=== PATIENT | male | born 1980 | race Caucasian/White ===

== ENCOUNTER 2016-10-08 18:30 | Emergency (ER) | payer OTHER ==
[~2016-10-08] VITALS: Ht 193 cm; Wt 90.4 kg
[~2016-10-08 18:30] MED LIST: ATR25 PO; DIVA500T5 PO; FLUT27.5 NAE
[2016-10-08 18:37] VITALS: TEMP 36.9; Ht 193 cm; Wt 90.4 kg
[2016-10-08] MEDS ORDERED: KETOROLAC TROMETHAMINE 30 MG/ML VIAL IV STA (18:54)
[2016-10-08] MEDS ORDERED: ONDANSETRON INJ 2 MG/ML 2 ML VIAL IV STA (18:54)
[2016-10-08] MEDS ORDERED: MoRPHine SULFATE 10 MG/ML CARP/VIAL IV STA ×2 (18:54→20:52)
[2016-10-08] MEDS ORDERED: SODIUM CHLORIDE 0.9% 1000ML 2,000 ML IV STA (18:54)
[2016-10-08 19:13] LABS: BASO % 0.8 %; BASO ABS # 0.04 K/uL (0-0.2); COMPLETE YES; EOS % 8.1 %; HEMATOCRIT 44.3 % (42-52); IG% 0.2 %; LYMPH % 28.5 %; LYMPH ABS # 1.45 K/uL (1.2-3.4); MEAN CORPUSCULAR HEMOGLOBIN 32.9 pg (25-34); MEAN CORPUSCULAR HGB CONC 36.1 g/dl (32-36); MEAN PLATELET VOLUME 10.5 fL (7.4-10.4); MONO % 10.4 %; PLATELET COUNT 186 K/uL (130-400); RED BLOOD COUNT 4.87 M/uL (4.7-6.1); WHITE BLOOD COUNT 5.08 K/uL (4.8-10.8)
[2016-10-08 19:23] LABS: URINE APPEARANCE TURBID (CLEAR); URINE COLOR ORANGE; URINE EPITHELIAL CELL AUTO 20-30 /lpf (0-5); URINE NITRITE NEG (NEG); URINE SPECIFIC GRAVITY 1.025 (1.000-1.030); UROBILINOGEN NEG (NEG)
[2016-10-08 19:28] LABS: MANUAL MICROSCOPIC REQUIRED? NO; REVIEW REQ? YES
[2016-10-08 19:29] LABS: URINE BILIRUBIN NEG (NEG)
[2016-10-08 19:33] LABS: BUN/CREATININE RATIO 11.4 (10-20); CALCIUM 9.8 mg/dl (8.5-10.1); CREATININE 0.88 mg/dl (0.60-1.40); POTASSIUM 3.6 mmol/L (3.5-5.1)
[2016-10-08 19:36] LABS: ALB/GLOB RATIO 1.3 (0.9-2)
[2016-10-08] MEDS ORDERED: MoRPHine SULFATE 4 MG/ML 1 ML CARP\\VIAL ONE ×2 (19:46→21:02)
--- NOTE | 2016-10-08 20:30 | DIAGNOSTIC IMAGING REPORT ---
CT SCAN OF THE ABDOMEN AND PELVIS WITHOUT IV CONTRAST CLINICAL HISTORY: Left flank pain and hematuria. COMPARISON STUDY: Abdominal CT dated 10/10/2013. TECHNIQUE: CT scan of the abdomen and pelvis is performed from the lung bases to the proximal femora. Images are reviewed in the axial, sagittal, and coronal planes. IV contrast was not administered for this examination. Automated dose control exposure was utilized. CT DOSE: 1074.49 mGycm FINDINGS: Lung bases: The heart is normal in size and without pericardial effusion. The lung bases are clear noting dependent atelectasis. Liver: The unenhanced liver is normal in size, contour, and attenuation. There is no intrahepatic biliary ductal dilatation. Gallbladder: Unremarkable. Spleen: Normal in size and attenuation. Pancreas: Unremarkable. Adrenal glands: Unremarkable. Kidneys: The unenhanced kidneys are normal in size and without hydronephrosis. There is a 6 mm calculus versus 2 adjacent calculi identified within the left renal pelvis, best seen on axial image #138. An additional punctate nonobstructing calculus is seen in the lower pole of the left kidney. No right renal calculi are identified. There is no evidence of contour deforming renal mass lesion. Abdominal vasculature: The abdominal aorta is normal in course and caliber. Bowel: The small bowel and colon are normal in course and caliber. There is mild colonic diverticulosis without CT evidence of acute diverticulitis. The appendix is surgically absent. Peritoneum: There is no intraperitoneal free air or abdominal ascites. There is a small fat-containing umbilical hernia. Lymphadenopathy: None. Pelvic viscera: The bladder, prostate, and seminal vesicles are normal as imaged. Skeletal structures: No lytic or blastic lesions are seen. IMPRESSION: 1. There is a 6 cm calculus versus 2 adjacent calculi identified in the left renal pelvis. There is no left-sided hydronephrosis, and this may be intermittently obstructing. Follow-up with urology is recommended. 2. An additional punctate nonobstructing calculus is seen in the left lower pole. No stones are identified in the right kidney. 3. Mild colonic diverticulosis without CT evidence of acute diverticulitis. Electronically signed by: Ponce Shin M.D. 10/08/2016 8:28 PM Dictated Date/Time: 10/08/2016 8:21 PM
--- NOTE | 2016-10-08 21:27 | DIAGNOSTIC IMAGING REPORT ---
KUB CLINICAL HISTORY: Left renal calculi. FINDINGS: 2 AP supine abdominal radiographs are correlated with abdominal CT performed the same day 10/08/2016. There is a nonobstructed abdominal bowel gas pattern. Suture material is noted in the right lower quadrant. There is moderate colonic fecal retention. This largely obscures the renal shadows. The left renal calculi seen by CT are not apparent by x-ray. The bony structures appear intact. The lung bases are clear as imaged. IMPRESSION: 1. Nonobstructed abdominal bowel gas pattern. 2. The left renal calculi seen by CT were not apparent by x-ray. Electronically signed by: Ponce Shin M.D. 10/08/2016 9:25 PM Dictated Date/Time: 10/08/2016 9:23 PM
[2016-10-08] MEDS ORDERED: OXYC1TAB3 PO (21:33)
[2016-10-08] MEDS ORDERED: ONDA4TAB10 SL (21:33)
--- NOTE | 2016-10-08 21:35 | EMERGENCY ROOM VISIT NOTE ---
ED Visit Note First contact with patient: 18:38 CHIEF COMPLAINT: Left-sided abdominal pain since last evening HISTORY OF PRESENT ILLNESS: Patient is a 36-year-old white male who presents emergency department for evaluation of left-sided abdominal pain. He states that he developed some mild discomfort last evening but it has progressively worsened throughout the day today. He describes it as constant, sharp and stabbing. It is located in the left mid abdomen and does not radiate. He reports associated nausea and vomited last evening. He denies any dysuria, frequency, urgency or hematuria, but just provided a urine sample and noted that it looked dark in the specimen cup. He has been having normal bowel movements, last was about 2 hours prior to arrival. It was formed and brown without blood or melena. He denies any pain with bowel movements. He denies any fever or chills. He is status post appendectomy. He presently rates his pain a 9/10. He tried taking Aleve without relief of his symptoms. REVIEW OF SYSTEMS: Review of systems as per HPI. All other systems reviewed were negative. 10 systems reviewed. PMH: Electronic medical records are reviewed and summarized as above/below. See Problem List. SOCIAL HISTORY: Patient lives at home. Smokes half a pack of cigarettes daily , denies alcohol use. He is unemployed. PHYSICAL EXAM: Vital Signs: Reviewed Nurse's notes. CONSTITUTIONAL: Patient is uncomfortable 36-year-old white male who is awake and alert and in moderate distress due to his stated complaint. EYES: Pupils equal, round, reactive to light and accommodation. EOMs intact without nystagmus. Sclera are anicteric. ENT: Tympanic membranes intact, with normal landmarks. External canals are clear. Oral and nasopharynx are clear. Mucous membranes are moist, no lesions , tongue and gums appear normal. NECK: No bruits auscultated. Supple without lymphadenopathy. No thyromegaly. No meningeal signs. Full active range of motion without discomfort. CARDIOVASCULAR: Regular rate and rhythm, with normal S1 and S2, no murmur or gallop or rub is heard. No carotid bruits auscultated. No JVD. Peripheral pulses easily palpable. RESPIRATORY: Breath sounds equal and clear to auscultation without wheezes, rales, or rhonchi heard. Full and equal chest expansion without accessory muscle use or retractions. ABDOMEN: Bowel sounds are present. Abdomen is soft, nondistended, tender to palpation in the left upper and lower quadrants, without guarding, rebound or rigidity. Well-healed surgical scar noted in the right lower quadrant. INTEGUMENTARY: No lesions or rash, normal skin turgor. LYMPH: No lymphadenopathy. EMERGENCY DEPARTMENT COURSE: Patient was seen and assessed as above. His old records were reviewed. IV access was obtained and he was hydrated with normal saline solution. He was medicated with morphine, Toradol and Zofran IV for pain. CBC with differential, CMP, lipase and urinalysis were performed. CT scan of the abdomen and pelvis without contrast was ordered. Laboratory studies noted a normal white count and H&H. Electrolytes, renal function and liver functions are normal. Lipase is not elevated. Urine dip noted 3+ occult blood, greater than 30 RBCs and calcium oxalate crystals. CT scan of the abdomen and pelvis noted a 6 mm calculus versus 2 adjacent calculi in the left renal pelvis. Possibility of intermittent obstruction was raised although there was no evidence for hydronephrosis at the time of CT. Mild diverticulosis without evidence for diverticulitis was noted. The patient was reassessed. He did request additional medication for discomfort and was given morphine 8 mg IV. All laboratory and diagnostic imaging studies were reviewed with him. He has evidence for nephrolithiasis, which may be intermittently causing obstruction in the left renal pelvis. His calcium oxalate crystals and blood in his urine, but no other indicators for infection. He is comfortable with IV and took after receiving IV fluids and analgesia. Conservative care measures were discussed. He was advised to follow -up with his PCP and urology this week for further care and evaluation. The patient rated his pain a 4/10 at discharge. Differential diagnoses entertained included UTI, cystitis, urethritis, pyelonephritis, renal colic, diverticulitis, bowel obstruction, perforation, among others. CT SCAN OF THE ABDOMEN AND PELVIS WITHOUT IV CONTRAST CLINICAL HISTORY: Left flank pain and hematuria. COMPARISON STUDY: Abdominal CT dated 10/10/2013. TECHNIQUE: CT scan of the abdomen and pelvis is performed from the lung bases to the proximal femora. Images are reviewed in the axial, sagittal, and coronal planes. IV contrast was not administered for this examination. Automated dose control exposure was utilized. CT DOSE: 1074.49 mGycm FINDINGS: Lung bases: The heart is normal in size and without pericardial effusion. The lung bases are clear noting dependent atelectasis. Liver: The unenhanced liver is normal in size, contour, and attenuation. There is no intrahepatic biliary ductal dilatation. Gallbladder: Unremarkable. Spleen: Normal in size and attenuation. Pancreas: Unremarkable. Adrenal glands: Unremarkable. Kidneys: The unenhanced kidneys are normal in size and without hydronephrosis. There is a 6 mm calculus versus 2 adjacent calculi identified within the left renal pelvis, best seen on axial image #138. An additional punctate nonobstructing calculus is seen in the lower pole of the left kidney. No right renal calculi are identified. There is no evidence of contour deforming renal mass lesion. Abdominal vasculature: The abdominal aorta is normal in course and caliber. Bowel: The small bowel and colon are normal in course and caliber. There is mild colonic diverticulosis without CT evidence of acute diverticulitis. The appendix is surgically absent. Peritoneum: There is no intraperitoneal free air or abdominal ascites. There is a small fat-containing umbilical hernia. Lymphadenopathy: None. Pelvic viscera: The bladder, prostate, and seminal vesicles are normal as imaged. Skeletal structures: No lytic or blastic lesions are seen. IMPRESSION: 1. There is a 6 cm calculus versus 2 adjacent calculi identified in the left renal pelvis. There is no left-sided hydronephrosis, and this may be intermittently obstructing. Follow-up with urology is recommended. 2. An additional punctate nonobstructing calculus is seen in the left lower pole. No stones are identified in the right kidney. 3. Mild colonic diverticulosis without CT evidence of acute diverticulitis. ] KUB CLINICAL HISTORY: Left renal calculi. FINDINGS: 2 AP supine abdominal radiographs are correlated with abdominal CT performed the same day 10/08/2016. There is a nonobstructed abdominal bowel gas pattern. Suture material is noted in the right lower quadrant. There is moderate colonic fecal retention. This largely obscures the renal shadows. The left renal calculi seen by CT are not apparent by x-ray. The bony structures appear intact. The lung bases are clear as imaged. IMPRESSION: 1. Nonobstructed abdominal bowel gas pattern. 2. The left renal calculi seen by CT were not apparent by x-ray. Problem List Medical Problems: (1) Abdominal pain Status: Resolved (2) Abscess of leg, right Status: Resolved (3) Abscess, earlobe Status: Resolved (4) Alcohol abuse Status: Resolved (5) Alcohol intoxication Status: Resolved (6) Ankle pain Status: Resolved (7) Asthma Status: Chronic (8) Asthma exacerbation Status: Resolved (9) Bilateral otitis externa Status: Resolved (10) Blood Clots Status: Resolved (11) Bronchitis Status: Resolved (12) Cellulitis of right ear Status: Resolved (13) Cellulitis of right earlobe Status: Resolved (14) Cervical strain Status: Resolved (15) Chronic hip pain Status: Chronic (16) Contusion of left hand including fingers Status: Resolved (17) Contusion of multiple sites Status: Resolved (18) Dehydration Status: Resolved (19) Depression Status: Resolved (20) Depression Status: Chronic (21) Encounter for removal of abscess packing Status: Resolved (22) Fall due to slipping on ice or snow Status: Resolved (23) Headache Status: Resolved (24) Headache Status: Resolved (25) Headache Status: Resolved (26) Hematemesis Status: Resolved (27) Hx-Venous Thrombosis&Embolism Status: Chronic (28) Infected sebaceous cyst Status: Resolved (29) Moderate recurrent major depression Status: Resolved (30) Nausea and vomiting Status: Resolved (31) Numbness on right side Status: Resolved (32) Pharyngitis Status: Resolved (33) Pharyngitis Status: Resolved (34) Pneumonia Status: Resolved (35) Pneumonitis Status: Resolved (36) Right calf pain Status: Resolved (37) Right knee pain Status: Resolved (38) Right upper quadrant abdominal pain Status: Resolved (39) Single major depressive episode Status: Resolved (40) Stomach Problems Status: Chronic (41) Strain of thoracic spine Status: Resolved (42) Suicidal ideation Status: Resolved (43) URI (upper respiratory infection) Status: Resolved (44) URI, acute Status: Resolved (45) Vomiting Status: Resolved (46) Vomiting and diarrhea Status: Resolved Surgical Problems: (1) Appendectomy Status: Resolved (2) Knee Surgery Status: Resolved Current/Historical Medications Scheduled Trazodone Hcl (Desyrel), 100 MG PO HS Scheduled PRN Hydroxyzine HCl (Hydroxyzine HCl), 25 MG PO for Itching Ondasetron Odt (Zofran Odt), 4 MG SL Q6H PRN for Nausea or Vomiting Oxycodone Immediate Rel Tab (Roxicodone Ir), 1-2 TAB PO Q4H PRN for Severe Pain Allergies Coded Allergies: Prednisone (Unverified Allergy, Unknown, hives, 10/08/16) BEE STING (Verified Adverse Reaction, Mild, UNKNOWN, 10/08/16) Vital Signs Date Time Temp Pulse Resp B/P Pulse Ox O2 Delivery O2 Flow Rate FiO2 10/08/16 21:50 57 20 153/102 98 10/08/16 20:59 89 18 150/105 10/08/16 18:37 36.9 84 20 131/86 97 Room Air Laboratory Results 10/08/16 19:00 Red Blood Count 4.87, Mean Corpuscular Volume 91.0, Mean Corpuscular Hemoglobin 32.9, Mean Corpuscular Hemoglobin Concent 36.1, Mean Platelet Volume 10.5, Neutrophils (%) (Auto) 52.0, Lymphocytes (%) (Auto) 28.5, Monocytes (%) (Auto) 10.4, Eosinophils (%) (Auto) 8.1, Basophils (%) (Auto) 0.8, Neutrophils # (Auto ) 2.64, Lymphocytes # (Auto) 1.45, Monocytes # (Auto) 0.53, Eosinophils # (Auto ) 0.41, Basophils # (Auto) 0.04 10/08/16 19:00 Test 10/08/16 18:45 10/08/16 19:00 Urine Color ORANGE Urine Appearance TURBID (CLEAR) Urine pH 5.0 (4.5-7.5) Urine Specific [place] 1.025 (1.000-1.030) Urine Protein 1+ (NEG) Urine Glucose (UA) NEG (NEG) Urine Ketones NEG (NEG) Urine Occult Blood 3+ (NEG) Urine Nitrite NEG (NEG) Urine Bilirubin NEG (NEG) Urine Urobilinogen NEG (NEG) Urine Leukocyte Esterase SMALL (NEG) Urine WBC (Auto) 1-5 /hpf (0-5) Urine RBC (Auto) >30 /hpf (0-4) Urine Hyaline Casts (Auto) 1-5 /lpf (0-5) Urine Epithelial Cells (Auto) 20-30 /lpf (0-5) Urine Bacteria (Auto) NEG (NEG) Urine Crystals CALCIUM OXALATE (NONE White Blood Count 5.08 K/uL (4.8-10.8) Red Blood Count 4.87 M/uL (4.7-6.1) Hemoglobin 16.0 g/dL (14.0-18.0) Hematocrit 44.3 % (42-52) Mean Corpuscular Volume 91.0 fL (80-100) Mean Corpuscular Hemoglobin 32.9 pg (25-34) Mean Corpuscular Hemoglobin Concent 36.1 g/dl (32-36) Platelet Count 186 K/uL (130-400) Mean Platelet Volume 10.5 fL (7.4-10.4) Neutrophils (%) (Auto) 52.0 % Lymphocytes (%) (Auto) 28.5 % Monocytes (%) (Auto) 10.4 % Eosinophils (%) (Auto) 8.1 % Basophils (%) (Auto) 0.8 % Neutrophils # (Auto) 2.64 K/uL (1.4-6.5) Lymphocytes # (Auto) 1.45 K/uL (1.2-3.4) Monocytes # (Auto) 0.53 K/uL (0.11-0.59) Eosinophils # (Auto) 0.41 K/uL (0-0.5) Basophils # (Auto) 0.04 K/uL (0-0.2) RDW Standard Deviation 42.7 fL (36.4-46.3) RDW Coefficient of Variation 12.7 % (11.5-14.5) Immature Granulocyte % (Auto) 0.2 % Immature Granulocyte # (Auto) 0.01 K/uL (0.00-0.02) Anion Gap 4.0 mmol/L (3-11) Est Creatinine Clear Calc Drug Dose 142.4 ml/min Estimated GFR () 128.1 Estimated GFR (Non- 110.5 BUN/Creatinine Ratio 11.4 (10-20) Calcium Level 9.8 mg/dl (8.5-10.1) Total Bilirubin 0.5 mg/dl (0.2-1) Aspartate Amino Transf (AST/SGOT) 6 U/L (15-37) Alanine Aminotransferase (ALT/SGPT) 16 U/L (12-78) Alkaline Phosphatase 65 U/L (45-117) Total Creatine Kinase 75 U/L (39-308) Total Protein 7.5 gm/dl (6.4-8.2) Albumin 4.2 gm/dl (3.4-5.0) Globulin 3.3 gm/dl (2.5-4.0) Albumin/Globulin Ratio 1.3 (0.9-2) Lipase 107 U/L (73-393) Medications Administered Medications (Trade) Dose Ordered Sig/Elías Route Start Time Stop Time Status Last Admin Dose Admin Sodium Chloride (Nss 1000ml) 2,000 ml @ 999 mls/hr Q2H1M STAT IV 10/08/16 18:54 10/08/16 20:54 DC 10/08/16 19:49 999 MLS/HR Ketorolac Tromethamine (Toradol Inj) 30 mg NOW STAT IV 10/08/16 18:54 10/08/16 18:56 DC 10/08/16 19:45 30 MG Ondansetron HCl (Zofran Inj) 4 mg NOW STAT IV 10/08/16 18:54 10/08/16 18:56 DC 10/08/16 19:45 4 MG Morphine Sulfate (MoRPHine SULFATE INJ) 8 mg STK-MED ONCE .ROUTE 10/08/16 19:46 10/08/16 19:47 DC 10/08/16 19:44 8 MG Morphine Sulfate (MoRPHine SULFATE INJ) 8 mg STK-MED ONCE .ROUTE 10/08/16 21:02 10/08/16 21:03 DC 10/08/16 20:59 8 MG Oxycodone HCl (Roxicodone Immediate Rel 5MG Home Pack) 1 homepack UD ONCE PO 10/08/16 21:45 10/08/16 21:46 DC 10/08/16 21:48 1 HOMEPACK Departure Information Impression Primary Impression: Left flank pain Additional Impressions: Left nephrolithiasis Hematuria Prescriptions Oxycodone Immediate Rel Tab (ROXICODONE IR) 5 Mg Tab 1-2 TAB PO Q4H Y for Severe Pain, #24 TAB For Initial Treatment Prov: Nina Dela Cruz PA 10/08/16 Ondasetron Odt (ZOFRAN ODT) 4 Mg Tab 4 MG SL Q6H Y for Nausea or Vomiting, #20 TAB Prov: Nina Dela Cruz PA 10/08/16 Referrals Hi Mendez M.D. (MEDICAL) (PCP) Camelia Serrano MD Patient Instructions My [facility] Additional Instructions DO NOT drive, drink alcohol, operate machinery, or perform dangerous activities today. You were given medications in the ER that can affect your ability to safely function or operate a vehicle. Oxycodone Immediate Release (OxyIR) 5mg: Take 1-2 pills every four hours for pain. Avoid alcohol, operating machinery or dangerous equipment, working on ladders or roofs, DRIVING, or situations where being under the influence may be dangerous. It is recommended to use an [id number] stool softener such as Colace, 100mg twice daily while taking this medication to avoid constipation. Zofran(odansetron) tablets 4mg: Take one and allow it to dissolve in your mouth every four to six hours as needed for nausea or vomiting. Acetaminophen(Tylenol) may be used for fever or pain. Use 1000mg every six hours as needed. Avoid using more than 4000mg in a 24 hour period. This medication can be taken if you need to drive, work, or perform activities which may be dangerous when taking narcotic pain medication. Strain your urine and collect all the stones or debris for the urologists. Rest and avoid strenuous activity until your stone passes and symptoms resolve. Drink plenty of fluids. Continue current medications. Return to the ER for worsening abdominal or back pain, vomiting, fevers, passing out, or as needed. Follow up with urology next week for further care and evaluation. Problem Qualifiers
[2016-10-08] MEDS ORDERED: OXYCODONE IR HOME PACK PO ONE (21:45)
[2016-10-08 21:50] VITALS: BP 153/102; PULSE 57; O2SAT 98
[2017-03-16] MEDS ORDERED: TRAZ1TAB9 PO (10:15)
== END 2016-10-08 21:53 | disposition home or self-care (01) ==
LOC: C.EDB 18:32 → C.EDA 21:53
DX: N20.0 Calculus of kidney (principal); R10.30 Lower abdominal pain, unspecified; R31.9 Hematuria, unspecified; K57.30 Diverticulosis of large intestine without perforation or abscess without bleeding; J45.909 Unspecified asthma, uncomplicated; G89.29 Other chronic pain; F32.9 Major depressive disorder, single episode, unspecified; F17.200 Nicotine dependence, unspecified, uncomplicated; Z86.19 Personal history of other infectious and parasitic diseases; Z86.718 Personal history of other venous thrombosis and embolism; Z98.890 Other specified postprocedural states; Z91.81 History of falling

== ENCOUNTER 2016-10-15 08:24 | Emergency (ER) | payer OTHER ==
[~2016-10-15] VITALS: Ht 190.5 cm; Wt 87.8 kg
[~2016-10-15 08:24] MED LIST changes: -DIVA500T5 PO; -FLUT27.5 NAE; +ONDA4TAB10 SL; +OXYC1TAB3 PO
[2016-10-15 08:29] VITALS: TEMP 36.7; Ht 190.5 cm; Wt 87.8 kg
[2016-10-15] MEDS ORDERED: SODIUM CHLORIDE 0.9% 1000ML 1,000 ML IV STA (08:33)
[2016-10-15] MEDS ORDERED: HYDROmorphone INJ 1 MG/ML SYR IV STA ×2 (08:33→10:06)
[2016-10-15] MEDS ORDERED: ONDANSETRON INJ 2 MG/ML 2 ML VIAL IV STA (08:33)
[2016-10-15] MEDS ORDERED: KETOROLAC TROMETHAMINE 30 MG/ML VIAL IV STA (08:33)
[2016-10-15 08:45] LABS: BASO % 1.1 %; BASO ABS # 0.08 K/uL (0-0.2); COMPLETE YES; EOS % 6.8 %; HEMATOCRIT 44.2 % (42-52); IG% 0.3 %; LYMPH % 45.8 %; LYMPH ABS # 3.32 K/uL (1.2-3.4); MEAN CELL VOLUME 92.1 fL (80-100); MEAN CORPUSCULAR HEMOGLOBIN 32.9 pg (25-34); MEAN CORPUSCULAR HGB CONC 35.7 g/dl (32-36); MEAN PLATELET VOLUME 10.3 fL (7.4-10.4); MONO % 8.7 %; NEUT % 37.3 %; PLATELET COUNT 194 K/uL (130-400); WHITE BLOOD COUNT 7.25 K/uL (4.8-10.8)
[2016-10-15 09:01] LABS: CALCIUM 9.9 mg/dl (8.5-10.1)
[2016-10-15 09:02] LABS: ALT/SGPT 17 U/L (12-78); BLOOD UREA NITROGEN 11 mg/dl (7-18); BUN/CREATININE RATIO 11.1 (10-20); CARBON DIOXIDE 27 mmol/L (21-32); CHLORIDE 110 mmol/L (98-107); CREATININE 0.95 mg/dl (0.60-1.40); GLUCOSE 109 mg/dl (70-99); POTASSIUM 3.4 mmol/L (3.5-5.1); SODIUM 145 mmol/L (136-145)
[2016-10-15 09:05] LABS: ALKALINE PHOSPHATASE 66 U/L (45-117); AST/SGOT 10 U/L (15-37)
--- NOTE | 2016-10-15 09:52 | DIAGNOSTIC IMAGING REPORT ---
KUB CLINICAL HISTORY: Left flank pain COMPARISON STUDY: CT scan dated 10/08/2016 FINDINGS: There is a 2 mm calcification located adjacent to the left L2 transverse process. This likely represents a left renal pelvic calcification given the prior CT findings. Postsurgical changes are present with a suture line visualized in the right mid abdomen. There are small bowel loops the upper limits of normal in diameter. There are no findings to indicate a significant bowel obstruction. IMPRESSION: Suspected left-sided nephrolithiasis. No conventional radiographic evidence of bowel obstruction Electronically signed by: Blaise Cedillo M.D. 10/15/2016 9:50 AM Dictated Date/Time: 10/15/2016 9:48 AM
--- NOTE | 2016-10-15 09:54 | DIAGNOSTIC IMAGING REPORT ---
EXAMINATION: RENAL ULTRASOUND CLINICAL HISTORY: Left flank pain COMPARISON STUDY: CT scan dated 10/08/2016 FINDINGS: The right kidney measures 10.1 cm. The left kidney measures 12 cm. There is no evidence of hydronephrosis. There is a 13 mm left renal cyst. The bladder was nearly empty at the time of scanning. IMPRESSION : 1. 13 mm left renal cyst 2. No evidence of hydronephrosis Electronically signed by: Blaise Cedillo M.D. 10/15/2016 9:52 AM Dictated Date/Time: 10/15/2016 9:50 AM
[2016-10-15] MEDS ORDERED: METOCLOPRAMIDE HCL INJ 5 MG/ML 2 ML VIAL IV STA (10:06)
[2016-10-15 10:23] VITALS: BP 130/81; PULSE 62; O2SAT 96
[2016-10-15] MEDS ORDERED: OXYC-57 PO (10:35)
[2016-10-15 10:46] LABS: MANUAL MICROSCOPIC REQUIRED? YES; URINE APPEARANCE CLOUDY (CLEAR); URINE BILIRUBIN NEG (NEG); URINE COLOR BROWN; URINE NITRITE NEG (NEG); URINE PH 5.5 (4.5-7.5); URINE SPECIFIC GRAVITY >= 1.030 (1.000-1.030); UROBILINOGEN NEG (NEG)
--- NOTE | 2016-10-15 10:46 | EMERGENCY ROOM VISIT NOTE ---
History Report prepared by Jared: Celia Huber Under the Supervision of: Dr. Seferino Padilla M.D. First contact with patient: 08:25 Chief Complaint: ABDOMINAL PAIN Stated Complaint: AB PAIN Nursing Triage Summary: Patient arrived via EMS, ambulatory from ambulance litter to ED litter. Patient c/o left lower abd pain since 0700 today; pain the same as when he had recently kidney stones. Pt denies urinary symptoms. C/O pain in his lower left back as well. Abd pain 10/10. EMS reports rigidness to LUQ, LLQ soft, tender to touch; pt was helping girlfriend move yesterday. Pt reports taking 1 oxy this am at 0700. Pt vomited in ED. History of Present Illness The patient is a 36 year old male who presents to the Emergency Room with complaints of persistent abdominal pain starting 0200 this morning. He presents to the ED by EMS. He rates his discomfort as a 10/10 in severity. He describes the pain as sharp. He was in the ED 2 weeks ago for abdominal pain at which time he was found to have kidney stones. Yesterday he believed he had passed the stones, but started getting the pain again. He reports lower back pain. Source of History: patient Onset: 0200 this morning Position: abdomen Symptom Intensity: 10/10 Quality: sharp Timing: other (persistent) Associated Symptoms: + back pain (lower) Review of Systems See HPI for pertinent positives & negatives. A total of 10 systems reviewed and were otherwise negative. Past Medical & Surgical Medical Problems: (1) Abdominal pain (2) Abscess of leg, right (3) Abscess, earlobe (4) Alcohol abuse (5) Alcohol intoxication (6) Ankle pain (7) Asthma (8) Asthma exacerbation (9) Bilateral otitis externa (10) Blood Clots (11) Bronchitis (12) Cellulitis of right ear (13) Cellulitis of right earlobe (14) Cervical strain (15) Chronic hip pain (16) Contusion of left hand including fingers (17) Contusion of multiple sites (18) Dehydration (19) Depression (20) Depression (21) Encounter for removal of abscess packing (22) Fall due to slipping on ice or snow (23) Headache (24) Headache (25) Headache (26) Hematemesis (27) Hx-Venous Thrombosis&Embolism (28) Infected sebaceous cyst (29) Moderate recurrent major depression (30) Nausea and vomiting (31) Numbness on right side (32) Pharyngitis (33) Pharyngitis (34) Pneumonia (35) Pneumonitis (36) Right calf pain (37) Right knee pain (38) Right upper quadrant abdominal pain (39) Single major depressive episode (40) Stomach Problems (41) Strain of thoracic spine (42) Suicidal ideation (43) URI (upper respiratory infection) (44) URI, acute (45) Vomiting (46) Vomiting and diarrhea Surgical Problems: (1) Appendectomy (2) Knee Surgery Family History Diabetes mellitus Hypertension Social History Smoking Status: Current Every Day Smoker Alcohol Use: heavy Drug Use: none Marital Status: single Housing Status: lives with family Occupation Status: employed Current/Historical Medications Scheduled Trazodone Hcl (Desyrel), 100 MG PO HS Scheduled PRN Hydroxyzine HCl (Hydroxyzine HCl), 25 MG PO for Itching Ondasetron Odt (Zofran Odt), 4 MG SL Q6H PRN for Nausea or Vomiting Oxycodone Immediate Rel Tab (Roxicodone Ir), 1-2 TAB PO Q4H PRN for Severe Pain Oxycodone/Acetaminophen 5MG/325MG (Percocet 5MG/325MG), 1-2 TAB PO Q4H PRN for Pain Allergies Coded Allergies: Prednisone (Unverified Allergy, Unknown, hives, 10/15/16) BEE STING (Verified Adverse Reaction, Mild, UNKNOWN, 10/15/16) Physical Exam Vital Signs Date Time Temp Pulse Resp B/P Pulse Ox O2 Delivery O2 Flow Rate FiO2 10/15/16 10:23 62 15 130/81 96 Room Air 10/15/16 09:12 57 16 178/110 98 Room Air 10/15/16 08:29 36.7 89 19 177/128 96 Room Air Physical Exam GENERAL: Patient is a healthy-appearing well-nourished HEAD: Normocephalic atraumatic EYES: Ocular movements intact pupils equal and react to light OROPHARYNX mucous membranes are moist no exudates present no erythema or edema present NECK: Supple no nuchal rigidity CHEST: Good equal expansion LUNGS: Clear and equal to auscultation CARDIAC: Normal S1 and S2 ABDOMEN: Soft, mild tenderness to the LLQ BACK: No CVA tenderness EXTREMITIES: No pain upon palpation normal muscle strength in all groups no clubbing cyanosis or edema NEURO: Patient is following commands is answering questions appropriately. Alert and oriented x3 Cranial Nerves 2-12 grossly intact Medical Decision & Procedures ER Provider Diagnostic Interpretation: X-ray results as stated below per interpretation by me and the radiologist. Radiology results as stated below per my review and radiologist interpretation: KUB CLINICAL HISTORY: Left flank pain COMPARISON STUDY: CT scan dated 10/08/2016 FINDINGS: There is a 2 mm calcification located adjacent to the left L2 transverse process. This likely represents a left renal pelvic calcification given the prior CT findings. Postsurgical changes are present with a suture line visualized in the right mid abdomen. There are small bowel loops the upper limits of normal in diameter. There are no findings to indicate a significant bowel obstruction. IMPRESSION: Suspected left-sided nephrolithiasis. No conventional radiographic evidence of bowel obstruction Electronically signed by: Blaise Cedillo M.D. 10/15/2016 9:50 AM Dictated Date/Time: 10/15/2016 9:48 AM EXAMINATION: RENAL ULTRASOUND CLINICAL HISTORY: Left flank pain COMPARISON STUDY: CT scan dated 10/08/2016 FINDINGS: The right kidney measures 10.1 cm. The left kidney measures 12 cm. There is no evidence of hydronephrosis. There is a 13 mm left renal cyst. The bladder was nearly empty at the time of scanning. IMPRESSION : 1. 13 mm left renal cyst 2. No evidence of hydronephrosis Electronically signed by: Blaise Cedlilo M.D. 10/15/2016 9:52 AM Dictated Date/Time: 10/15/2016 9:50 AM Laboratory Results 10/15/16 08:30 Red Blood Count 4.80, Mean Corpuscular Volume 92.1, Mean Corpuscular Hemoglobin 32.9, Mean Corpuscular Hemoglobin Concent 35.7, Mean Platelet Volume 10.3, Neutrophils (%) (Auto) 37.3, Lymphocytes (%) (Auto) 45.8, Monocytes (%) (Auto) 8.7, Eosinophils (%) (Auto) 6.8, Basophils (%) (Auto) 1.1, Neutrophils # (Auto) 2.71, Lymphocytes # (Auto) 3.32, Monocytes # (Auto) 0.63, Eosinophils # (Auto) 0.49, Basophils # (Auto) 0.08 10/15/16 08:30 Test 10/15/16 08:30 10/15/16 10:04 White Blood Count 7.25 K/uL (4.8-10.8) Red Blood Count 4.80 M/uL (4.7-6.1) Hemoglobin 15.8 g/dL (14.0-18.0) Hematocrit 44.2 % (42-52) Mean Corpuscular Volume 92.1 fL (80-100) Mean Corpuscular Hemoglobin 32.9 pg (25-34) Mean Corpuscular Hemoglobin Concent 35.7 g/dl (32-36) Platelet Count 194 K/uL (130-400) Mean Platelet Volume 10.3 fL (7.4-10.4) Neutrophils (%) (Auto) 37.3 % Lymphocytes (%) (Auto) 45.8 % Monocytes (%) (Auto) 8.7 % Eosinophils (%) (Auto) 6.8 % Basophils (%) (Auto) 1.1 % Neutrophils # (Auto) 2.71 K/uL (1.4-6.5) Lymphocytes # (Auto) 3.32 K/uL (1.2-3.4) Monocytes # (Auto) 0.63 K/uL (0.11-0.59) Eosinophils # (Auto) 0.49 K/uL (0-0.5) Basophils # (Auto) 0.08 K/uL (0-0.2) RDW Standard Deviation 42.8 fL (36.4-46.3) RDW Coefficient of Variation 12.7 % (11.5-14.5) Immature Granulocyte % (Auto) 0.3 % Immature Granulocyte # (Auto) 0.02 K/uL (0.00-0.02) Anion Gap 8.0 mmol/L (3-11) Est Creatinine Clear Calc Drug Dose 128.5 ml/min Estimated GFR () 118.9 Estimated GFR (Non- 102.6 BUN/Creatinine Ratio 11.1 (10-20) Calcium Level 9.9 mg/dl (8.5-10.1) Total Bilirubin 0.4 mg/dl (0.2-1) Direct Bilirubin < 0.1 mg/dl (0-0.2) Aspartate Amino Transf (AST/SGOT) 10 U/L (15-37) Alanine Aminotransferase (ALT/SGPT) 17 U/L (12-78) Alkaline Phosphatase 66 U/L (45-117) Total Protein 7.3 gm/dl (6.4-8.2) Albumin 4.2 gm/dl (3.4-5.0) Lipase 279 U/L (73-393) Urine Color BROWN Urine Appearance CLOUDY (CLEAR) Urine pH 5.5 (4.5-7.5) Urine Specific Remus >= 1.030 (1.000-1.030) Urine Protein 2+ (NEG) Urine Glucose (UA) NEG (NEG) Urine Ketones NEG (NEG) Urine Occult Blood 3+ (NEG) Urine Nitrite NEG (NEG) Urine Bilirubin NEG (NEG) Urine Urobilinogen NEG (NEG) Urine Leukocyte Esterase NEG (NEG) Urine RBC >30 /hpf (0-4) Urine WBC 1-5 /hpf (0-5) Urine Epithelial Cells 5-10 /lpf (0-5) Urine Calcium Oxalate Crystals PRESENT (NONE PRSENT) Urine Bacteria NEG (NEG) Labs reviewed by ED physician. Medications Administered Medications (Trade) Dose Ordered Sig/Elías Route Start Time Stop Time Status Last Admin Dose Admin Sodium Chloride (Nss 1000ml) 1,000 ml @ 999 mls/hr Q1H1M STAT IV 10/15/16 08:33 10/15/16 09:33 DC 10/15/16 08:47 999 MLS/HR Ketorolac Tromethamine (Toradol Inj) 30 mg NOW STAT IV 10/15/16 08:33 10/15/16 08:35 DC 10/15/16 08:48 30 MG Hydromorphone HCl (Dilaudid Inj) 1 mg NOW STAT IV 10/15/16 08:33 10/15/16 08:35 DC 10/15/16 08:48 1 MG Ondansetron HCl (Zofran Inj) 4 mg NOW STAT IV 10/15/16 08:33 10/15/16 08:35 DC 10/15/16 08:48 4 MG Hydromorphone HCl (Dilaudid Inj) 1 mg NOW STAT IV 10/15/16 10:06 10/15/16 10:07 DC 10/15/16 10:17 1 MG Metoclopramide HCl (Reglan Inj) 10 mg NOW STAT IV 10/15/16 10:06 10/15/16 10:07 DC 10/15/16 10:18 10 MG ED Course 0849: Past medical records reviewed. The patient was evaluated in room B7. A complete history and physical examination was performed. 0833: Zofran Inj 4 mg IV, Dilaudid Inj 1 mg IV, Toradol Inj 30 mg IV, NSS 1000 ml @ 999 mls/hr IV. 1006: Reglan Inj 10 mg IV, Dilaudid Inj 1 mg IV. 1031: Upon reexamination the patient is resting comfortably. I discussed results and treatment plan with the patient. He verbalizes agreement and understanding. The patient is ready for discharge. Medical Decision Differential diagnosis: Etiologies such as appendicitis, diverticulitis, PUD, biliary pathology, UTI, pancreatitis, obstruction, mesenteric ischemia, aortic pathology, infections, inflammatory bowel disease, renal colic, as well as others were entertained. This is a 36-year-old male who presents emergency department complaining of flank pain. The patient just had a CAT scan performed 2 weeks ago therefore I felt the risk of radiation outweighed the risk of repeating the CAT scan. This is also based on the patient's laboratory work. He was sent for KUB as well as ultrasound. His ultrasound does not show any evidence of hydronephrosis however the KUB does show stool small calculi. He is having hematuria. For this reason an IV was established, patient given normal saline bolus, Toradol, Dilaudid repeat examination revealed improvement patient's symptoms the patient already has a follow-up scheduled with urology however I asked the patient to try and move this up. I will hold off on placing the patient on antibiotics pending urine culture results. Serial abdominal examinations were performed on the patient in the emergency department and at no time did the patient exhibit a surgical abdomen. I felt based on these findings along with the fact that the patient was afebrile that he can be safely discharged home. Patient was in agreement with the treatment plan. Impression Primary Impression: Hematuria Additional Impression: Flank pain Scribe Attestation The scribe's documentation has been prepared under my direction and personally reviewed by me in its entirety. I confirm that the note above accurately reflects all work, treatment, procedures, and medical decision making performed by me. Departure Information Dispostion Home / Self-Care Prescriptions Oxycodone/Acetaminophen 5MG/325MG (PERCOCET 5MG/325MG) Tab 1-2 TAB PO Q4H Y for Pain, #14 TAB Prov: Seferino Padilla MD 10/15/16 Referrals Hi Mendez M.D. (MEDICAL) (PCP) Camelia Serrano .MD Forms Call Back Authorization, HOME CARE DOCUMENTATION FORM, IMPORTANT VISIT INFORMATION, School Instructions, Work Instructions Patient Instructions ED Hematuria, Hematuria Poss Causes, [facility] Additional Instructions Follow up with Dr Hernandez's office You received narcotic or benzodiazepene medication while in the emergency room today. Do not drive, operate heavy machinery, or drink alcohol under the influence of this medication. Take 600 mg Ibuprofen every 6 hours Take Percocet for breakthrough pain You have been examined and treated today on an emergency basis only. This is not a substitute for, or an effort to provide, complete comprehensive medical care. It is impossible to recognize and treat all injuries or illnesses in a single emergency department visit. It is therefore important that you follow up closely with Dr Mendez. Call as soon as possible for an appointment. Thank you for your time and consideration. I look forward to speaking with you again soon. Please don't hesitate to call us if you have any questions. Problem Qualifiers
[2016-10-15 11:02] LABS: REVIEW REQ? NO
[2016-10-15 11:32] LABS: URINE BACTERIA NEG (NEG); URINE RBC >30 /hpf (0-4)
[2017-03-16] MEDS ORDERED: TRAZ1TAB9 PO (10:15)
== END 2016-10-15 10:54 | disposition home or self-care (01) ==
LOC: EDBD 08:24 → C.EDB 08:25
DX: R31.9 Hematuria, unspecified (principal); R10.30 Lower abdominal pain, unspecified; F32.9 Major depressive disorder, single episode, unspecified; J45.909 Unspecified asthma, uncomplicated; G89.29 Other chronic pain; F17.200 Nicotine dependence, unspecified, uncomplicated; Z87.19 Personal history of other diseases of the digestive system; Z86.19 Personal history of other infectious and parasitic diseases; Z87.828 Personal history of other (healed) physical injury and trauma; Z86.718 Personal history of other venous thrombosis and embolism; Z91.81 History of falling; Z86.2 Personal history of diseases of the blood and blood-forming organs and certain disorders involving the immune mechanism; Z98.890 Other specified postprocedural states; Z88.8 Allergy status to other drugs, medicaments and biological substances; Z91.030 Bee allergy status; Z83.3 Family history of diabetes mellitus; Z82.49 Family history of ischemic heart disease and other diseases of the circulatory system

== ENCOUNTER 2016-10-18 08:04 | Emergency (ER) | payer OTHER ==
[~2016-10-18] VITALS: Ht 193 cm; Wt 89.3 kg
[~2016-10-18 08:04] MED LIST changes: +OXYC-57 PO
[2016-10-18 08:07] VITALS: Ht 193 cm; Wt 89.3 kg
--- NOTE | 2016-10-18 08:29 | EMERGENCY ROOM VISIT NOTE ---
History Report prepared by Jared: Lori Chua Under the Supervision of: Dr. Clifton Finnegan M.D. First contact with patient: 08:19 Chief Complaint: ABDOMINAL PAIN Stated Complaint: ABDOMINAL PAIN Nursing Triage Summary: Patient arrived by ambulance bls from home with c/o left upper abd pain states he has been here three times for the same told he has kidney stones. Patient states he had one episode of vomiting this morning and also reports the oxycodone is not helping his pain. Rates the pain a 10/10. History of Present Illness The patient is a 36 year old male who presents to the Emergency Room with complaints of persistent left sided abdominal pain that began several days ago. He currently rates his discomfort as a 10/10 in severity. The patient notes that he has known kidney stones on the left side. He states that today his had consulted Dr. Serrano with Urology and she is going to do emergency surgery on him today. The patient states that he has not eaten or drank anything today. He additionally associates vomiting with his symptoms today. The patient states that the oxycodone is not helping his pain. Source of History: patient Onset: several days ago Position: abdomen (left sided) Symptom Intensity: 10/10 Timing: other (persistent) Associated Symptoms: + vomiting Review of Systems See HPI for pertinent positives & negatives. A total of 10 systems reviewed and were otherwise negative. Past Medical & Surgical Medical Problems: (1) Abdominal pain (2) Abscess of leg, right (3) Abscess, earlobe (4) Alcohol abuse (5) Alcohol intoxication (6) Ankle pain (7) Asthma (8) Asthma exacerbation (9) Bilateral otitis externa (10) Blood Clots (11) Bronchitis (12) Cellulitis of right ear (13) Cellulitis of right earlobe (14) Cervical strain (15) Chronic hip pain (16) Contusion of left hand including fingers (17) Contusion of multiple sites (18) Dehydration (19) Depression (20) Depression (21) Encounter for removal of abscess packing (22) Fall due to slipping on ice or snow (23) Headache (24) Headache (25) Headache (26) Hematemesis (27) Hx-Venous Thrombosis&Embolism (28) Infected sebaceous cyst (29) Moderate recurrent major depression (30) Nausea and vomiting (31) Numbness on right side (32) Pharyngitis (33) Pharyngitis (34) Pneumonia (35) Pneumonitis (36) Right calf pain (37) Right knee pain (38) Right upper quadrant abdominal pain (39) Single major depressive episode (40) Stomach Problems (41) Strain of thoracic spine (42) Suicidal ideation (43) URI (upper respiratory infection) (44) URI, acute (45) Vomiting (46) Vomiting and diarrhea Surgical Problems: (1) Appendectomy (2) Knee Surgery Family History Diabetes mellitus Hypertension Social History Smoking Status: Current Every Day Smoker Alcohol Use: heavy Drug Use: none Marital Status: single Housing Status: lives with family Occupation Status: employed Current/Historical Medications Scheduled Tamsulosin Hcl (Flomax), 0.4 MG PO DAILY Trazodone Hcl (Desyrel), 100 MG PO HS Scheduled PRN Oxycodone/Acetaminophen 5MG/325MG (Percocet 5MG/325MG), 1 TABLET PO Q4H PRN for Pain Allergies Coded Allergies: Prednisone (Unverified Allergy, Unknown, hives, 10/15/16) BEE STING (Verified Adverse Reaction, Mild, UNKNOWN, 10/15/16) Physical Exam Vital Signs Date Time Temp Pulse Resp B/P Pulse Ox O2 Delivery O2 Flow Rate FiO2 10/18/16 13:55 36.3 102 16 157/92 95 Room Air 10/18/16 13:45 107 16 157/92 97 Room Air 10/18/16 13:35 127 16 147/95 100 Mask 10 10/18/16 13:25 36.5 16 100 Mask 10 10/18/16 13:17 36.5 129 16 125/84 100 Mask 10 10/18/16 12:00 36.9 76 18 169/97 96 Room Air 10/18/16 10:40 77 18 164/88 94 10/18/16 09:11 84 16 167/99 97 Room Air 10/18/16 08:38 94 20 171/106 99 Room Air 10/18/16 08:07 37.1 94 20 170/113 98 Room Air Physical Exam GENERAL: Patient awake, alert, oriented x 3. Patient follows commands. Patient appears to be in moderate to severe distress. Patient does not appear toxic. Patient is adequately hydrated and well-nourished. SKIN: No erythema, pallor, cyanosis or rash HEENT: Normal head, pupils equal, reactive to light and accommodation. Oral cavity and posterior pharynx appear normal. Neck: Without adenopathy, no neck vein distention. LUNGS: Faint wheezes noted auscultation.. No rales, no rhonchi. HEART: No murmurs. No gallops. No rubs ABDOMEN: Derick tenderness left CVA area, anteriorly. No masses, no rebound, no hepatomegaly or splenomegaly. EXTREMITIES: No signs of trauma or infection. NEUROLOGIC: Cranial nerves II-XII within normal limits. No gross motor sensory function deficits. Medical Decision & Procedures ER Provider Diagnostic Interpretation: X ray results are stated below per my interpretation and the radiologist's interpretation. KUB CLINICAL HISTORY: Left renal calculus. COMPARISON STUDY: CT of the abdomen and pelvis October 08, 2016 and KUB and renal ultrasound October 15, 2016. FINDINGS: The bowel gas pattern is normal. There is a possible left renal pelvis calculus however this could be artifactual. IMPRESSION: Subtle 5 mm left renal pelvis calculus. Electronically signed by: Homero Wallace M.D. 10/18/2016 9:49 AM Dictated Date/Time: 10/18/2016 9:45 AM Laboratory Results 10/18/16 08:07 10/18/16 08:07 Test 10/18/16 08:07 Red Blood Count 4.69 M/uL (4.7-6.1) Mean Corpuscular Volume 91.3 fL (80-100) Mean Corpuscular Hemoglobin 32.6 pg (25-34) Mean Corpuscular Hemoglobin Concent 35.7 g/dl (32-36) RDW Standard Deviation 41.8 fL (36.4-46.3) RDW Coefficient of Variation 12.5 % (11.5-14.5) Mean Platelet Volume 10.3 fL (7.4-10.4) Anion Gap 9.0 mmol/L (3-11) Est Creatinine Clear Calc Drug Dose 140.8 ml/min Estimated GFR () 127.5 Estimated GFR (Non- 110.0 BUN/Creatinine Ratio 13.3 (10-20) Calcium Level 10.1 mg/dl (8.5-10.1) Laboratory results as stated above per my review. Medications Administered Medications (Trade) Dose Ordered Sig/Elías Route Start Time Stop Time Status Last Admin Dose Admin Morphine Sulfate (MoRPHine SULFATE INJ) 8 mg Q1H PRN IV 10/18/16 08:30 11/01/16 08:29 10/18/16 09:13 8 MG Ondansetron HCl (Zofran Inj) 4 mg PRN PRN IV 10/18/16 08:30 11/17/16 08:29 10/18/16 08:30 4 MG Morphine Sulfate 8 mg 8 mg ONE ONCE IV 10/18/16 09:15 10/18/16 09:16 DC 10/18/16 09:15 8 MG Sodium Chloride (Nss 1000ml) 1,000 ml @ 300 mls/hr Q3H20M STAT IV 10/18/16 10:29 10/18/16 13:48 DC 10/18/16 10:29 300 MLS/HR Cefazolin Sodium (Ancef 2000mg/60 ml D5W) 2,000 mg STK-MED ONCE IV 10/18/16 12:24 10/18/16 12:25 DC 10/18/16 12:37 2,000 MG ED Course 0819: Past medical records reviewed. The patient was evaluated in room A3. A complete history and physical examination was performed. 0830: Ordered Zofran Inj 4 mg IV, Morphine Sulfate 8 mg IV. 15: Ordered Morphine Sulfate 8 mg IV. 1026: I discussed the patients case with Dr. Serrano, Urology. She states that she will take the patient to surgery around noon. 1029: Ordered Sodium Chloride 1000 ml @ 300 ml. Medical Decision Nurses notes reviewed. Medical history sheet reviewed. Differential diagnosis includes but is not limited to: ureteral calculus, pyelonephritis, UTI. The patient is here with severe left flank pain. This is consistent with a prior diagnosis of a left ureteral calculus. KUB performed today reveals a similar sized stone. The patient was given multiple doses of pain medication. I discussed care with Dr. Serrano who will take the patient to the OR. Consults Time Called: 1023 Consulting Physician: Dr. Serrano, Urology Returned Call: 1026 I discussed the patients case with Dr. Serrano, Urology. She states that she will take the patient to surgery around noon. Impression Primary Impression: Left ureteral calculus Scribe Attestation The scribe's documentation has been prepared under my direction and personally reviewed by me in its entirety. I confirm that the note above accurately reflects all work, treatment, procedures, and medical decision making performed by me. Departure Information Dispostion Being Evaluated By Surgeon Prescriptions Oxycodone/Acetaminophen 5MG/325MG (PERCOCET 5MG/325MG) Tab 1 TABLET PO Q4H Y for Pain, #30 TAB Prov: Camelia Serrano MD 10/18/16 Tamsulosin Hcl (FLOMAX) 0.4 Mg Cap 0.4 MG PO DAILY, #7 CAP Prov: Camelia Serrano MD 10/18/16 Referrals Hi Mendez M.D. (MEDICAL) (PCP)
[2016-10-18] MEDS: MoRPHine SULFATE 10 MG/ML CARP/VIAL IV PRN ×2 (08:30→09:13)
[2016-10-18] MEDS ORDERED: ONDANSETRON INJ 2 MG/ML 2 ML VIAL IV PRN (08:30)
[2016-10-18 08:33] LABS: HEMATOCRIT 42.8 % (42-52); MEAN CELL VOLUME 91.3 fL (80-100); MEAN CORPUSCULAR HEMOGLOBIN 32.6 pg (25-34); MEAN CORPUSCULAR HGB CONC 35.7 g/dl (32-36); MEAN PLATELET VOLUME 10.3 fL (7.4-10.4); PLATELET COUNT 173 K/uL (130-400); RED BLOOD COUNT 4.69 M/uL (4.7-6.1); WHITE BLOOD COUNT 5.42 K/uL (4.8-10.8)
[2016-10-18 08:50] LABS: BUN/CREATININE RATIO 13.3 (10-20); CREATININE 0.89 mg/dl (0.60-1.40); POTASSIUM 3.4 mmol/L (3.5-5.1)
[2016-10-18 08:55] LABS: CALCIUM 10.1 mg/dl (8.5-10.1)
[2016-10-18] MEDS ORDERED: MoRPHine SULFATE 10 MG/ML CARP/VIAL IV ONE (09:15)
--- NOTE | 2016-10-18 09:51 | DIAGNOSTIC IMAGING REPORT ---
KUB CLINICAL HISTORY: Left renal calculus. COMPARISON STUDY: CT of the abdomen and pelvis October 08, 2016 and KUB and renal ultrasound October 15, 2016. FINDINGS: The bowel gas pattern is normal. There is a possible left renal pelvis calculus however this could be artifactual. IMPRESSION: Subtle 5 mm left renal pelvis calculus. Electronically signed by: Homero Wallace M.D. 10/18/2016 9:49 AM Dictated Date/Time: 10/18/2016 9:45 AM
[2016-10-18] MEDS ORDERED: SODIUM CHLORIDE 0.9% 1000ML 1,000 ML IV STA (10:29)
[2016-10-18 10:40] VITALS: O2SAT 94
[2016-10-18] MEDS ORDERED: DEXAMETHASONE SOD INJ 4 MG/ML VIAL ONE (12:05)
[2016-10-18] MEDS ORDERED: FENTANYL CITRATE INJ 50 MCG/1 ML 2 ML VIAL ONE ×2 (12:05→12:51)
[2016-10-18] MEDS ORDERED: LIDOCAINE HCL 2% 2 ML VIAL (20MG/ML) ONE (12:05)
[2016-10-18] MEDS ORDERED: ONDANSETRON INJ 2 MG/ML 2 ML VIAL ONE ×2 (12:05→12:56)
[2016-10-18] MEDS ORDERED: MIDAZOLAM HCL 1 MG/ML 2ML VIAL ONE (12:05)
[2016-10-18] MEDS ORDERED: PROPOFOL IV EMULSION 10 MG/ML 20 ML VIAL IV ONE (12:05)
--- NOTE | 2016-10-18 12:23 | History and Physical ---
History Date of Service: Oct 18, 2016. Chief Complaint: left upj stone Primary Care Physician: Hi Mendez M.D. (MEDICAL) Pt seen a urologist before?: No History of Present Illness Patient has bounced back to ER 3rd time with left renal colic. Has ct and kub showing left 5mm upj stone. He has intolerable pain and nausea. Has not had stones before. NPO all day today. Imaging CT, KUB Laboratory Results Past 24 Hours Test 10/18/16 08:07 Range/Units White Blood Count 5.42 4.8-10.8 K/uL Red Blood Count 4.69 4.7-6.1 M/uL Hemoglobin 15.3 14.0-18.0 g/dL Hematocrit 42.8 42-52 % Mean Corpuscular Volume 91.3 80-100 fL Mean Corpuscular Hemoglobin 32.6 25-34 pg Mean Corpuscular Hemoglobin Concent 35.7 32-36 g/dl RDW Standard Deviation 41.8 36.4-46.3 fL RDW Coefficient of Variation 12.5 11.5-14.5 % Platelet Count 173 130-400 K/uL Mean Platelet Volume 10.3 7.4-10.4 fL Sodium Level 146 136-145 mmol/L Potassium Level 3.4 3.5-5.1 mmol/L Chloride Level 109 98-107 mmol/L Carbon Dioxide Level 28 21-32 mmol/L Anion Gap 9.0 3-11 mmol/L Blood Urea Nitrogen 12 7-18 mg/dl Creatinine 0.89 0.60-1.40 mg/dl Est Creatinine Clear Calc Drug Dose 140.8 ml/min Estimated GFR () 127.5 Estimated GFR (Non- 110.0 BUN/Creatinine Ratio 13.3 10-20 Random Glucose 105 70-99 mg/dl Calcium Level 10.1 8.5-10.1 mg/dl Labs were reviewed and are within normal limits unless listed below. Labs are available in the chart and at [facility] Problem List Medical Problems: (1) Asthma Status: Chronic (2) Chronic hip pain Status: Chronic (3) Depression Status: Chronic (4) Flank pain Status: Acute (5) Hematuria Status: Acute (6) Hematuria Status: Acute (7) Hx-Venous Thrombosis&Embolism Status: Chronic (8) Left flank pain Status: Acute (9) Left nephrolithiasis Status: Acute (10) Stomach Problems Status: Chronic Past History Past Medical History: alcohol addiction, deep vein thrombosis, hypercoagulability, hypertension Past Surgical History: no surgical history, appendectomy, orthopedic surgery ( right knee x 2, ) Family History Diabetes mellitus Hypertension Social History Smokin pack/day Alcohol: history of alcohol abuse Drug use: none Marital status: single Housing status: lives with family Occupation status: unemployed Immunizations History of Influenza Vaccine: Yes Influenza Vaccine Date: Mar 05, 2008 History of Tetanus Vaccine?: UTD Tetanus Immunization Date: Jun 17, 2001 History of Pneumococcal: Yes Pneumococcal Date: Mar 03, 2009 History of Hepatitis B Vaccine: Yes History of MDRO No Allergies Coded Allergies: Prednisone (Unverified Allergy, Unknown, hives, 10/15/16) BEE STING (Verified Adverse Reaction, Mild, UNKNOWN, 10/15/16) Medications Home Medications: Home Meds and Scripts Medications Dose Route/Sig Max Daily Dose Days Date Category Desyrel (Trazodone Hcl) 100 Mg Tab 100 Mg PO HS 06/16/16 Reported Inpatient Medications: Current Inpatient Medications Medications (Trade) Dose Ordered Sig/Elías Route Start Time Stop Time Status Last Admin Dose Admin Morphine Sulfate (MoRPHine SULFATE INJ) 8 mg Q1H PRN IV 10/18/16 08:30 11/01/16 08:29 10/18/16 09:13 8 MG Ondansetron HCl 4 mg 4 mg PRN PRN IV 10/18/16 08:30 11/17/16 08:29 10/18/16 08:30 4 MG Sodium Chloride (Nss 1000ml) 1,000 ml @ 300 mls/hr Q3H20M STAT IV 10/18/16 10:29 10/18/16 13:48 10/18/16 10:29 300 MLS/HR Review of Systems Review of Systems Constitutional: No chills, No fever Endocrine: + tired/sluggish, No excessive thirst, No too cold, No too hot Gastrointestinal: + abdominal pain, + indigestion, + nausea, No constipation, No vomiting Respiratory: No coughing up blood, No shortness of breath Male : + kidney stones, No blood in urine, No frequent urination, No infections, No leaking urine, No painful urination, No weak stream Physical Exam Vital Signs: Vital Signs Past 12 Hours Date Time Temp Pulse Resp B/P Pulse Ox O2 Delivery O2 Flow Rate FiO2 10/18/16 10:40 77 18 164/88 94 10/18/16 09:11 84 16 167/99 97 Room Air 10/18/16 08:38 94 20 171/106 99 Room Air 10/18/16 08:07 37.1 94 20 170/113 98 Room Air Physical Exam: General Appearance: WD/WN, no apparent distress, + thin Eyes: bilateral eyes normal inspection ENT: hearing grossly normal Respiratory/Chest: lungs clear, normal breath sounds, no respiratory distress, no accessory muscle use Cardiovascular: regular rate, rhythm Gastrointestinal: Abdomen: normal abdomen Bladder: normal bladder Hernia: absent hernia Liver: normal liver Extremities: non-tender, normal inspection, no pedal edema, no calf tenderness Neurologic/Psychiatric: alert, normal mood/affect, oriented x 3 Skin: normal color, warm/dry, no rash Assessment & Plan Assessment & Plan left upj stone failed outpatient management plan to OR for left ureteroscopy laser lithotripsy basket stone extraction stent I described surgery and he had an opportunity to ask questions and signed consent 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
[2016-10-18] MEDS ORDERED: CEFAZOLIN IV 2,000 MG/60 ML D5W IV ONE (12:24)
[2016-10-18] MEDS ORDERED: GLYCOPYRROLATE INJ 0.2 MG/ML VIAL ONE (12:56)
[2016-10-18] MEDS ORDERED: ATROPINE SULFATE 0.4 MG/ML 1 ML VIAL ONE (12:56)
[2016-10-18] MEDS ORDERED: KETOROLAC TROMETHAMINE 30 MG/ML VIAL ONE (13:10)
[2016-10-18] MEDS ORDERED: ARTIFICIAL TEARS OP OINT 3.5 GM TUBE ONE (13:16)
--- NOTE | 2016-10-18 13:19 | DIAGNOSTIC IMAGING REPORT ---
INTRAOPERATIVE KUB CLINICAL HISTORY: LT LASER/STENT COMPARISON STUDY: 10/15/2016 FINDINGS: 26 seconds of fluoroscopic time was utilized. A single fluoroscopic spot image of the pelvis is provided for interpretation. This reveals the distal aspect of a nephroureteral stent. IMPRESSION: A single fluoroscopic spot image reveals the distal aspect of a left-sided nephroureteral stent Electronically signed by: Blaise Cedillo M.D. 10/18/2016 1:17 PM Dictated Date/Time: 10/18/2016 1:16 PM
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
[2016-10-18] MEDS ORDERED: TAMS0.4C38 PO (13:21)
[2016-10-18] MEDS ORDERED: OXYC-57 PO (13:21)
--- NOTE | 2016-10-18 13:26 | Discharge Instructions ---
Discharge Instructions Date of Service Oct 18, 2016. Admission Reason for Admission: left ureteral stone with renal colic Discharge Discharge Diagnosis / Problem: left mid ureteral stone Discharge Goals Goal(s): Decrease discomfort, Improve disease control Activity Recommendations Activity Limitations: resume your previous activity Lifting Limitations: none Exercise/Sports Limitations: none May Resume Sexual Activity: when tolerated Shower/Bathe: no limitations Driving or Machine Use: resume 1 day after discharge . Instructions / Follow-Up Instructions / Follow-Up remove stent by slowly pulling on string on . String is 10 inches and blue, stent is 10 inches and white Urine will be bloody for many days you will have pain at kidney and urethra for several days Use ibuprofen 800mg by mouth every 8 hours with food for the next 3 days Use percocet prescription pain medicine in addition if needed use AZO over the counter if having burning with urination. Discharge Diet Recommended Diet: Regular Diet Procedures Procedures Performed: Cystoscopy, Left Urteroscopy, Laser Lithotripsy, Basket Stone Extraction, Left Ureteral Stent Placement Pending Studies Studies pending at discharge: no Medical Emergencies . Who to Call and When: Medical Emergencies: If at any time you feel your situation is an emergency, please call 911 immediately. . Non-Emergent Contact Non-Emergency issues call your: Urologist ([phone]) Call Non-Emergent contact if: temperature is above 100.5 . . "Provider Documentation" section prepared by Camelia Serrano. . VTE Core Measure Inpt VTE Proph given/why not?: SCD's [place] Drug Monitoring Program Search Results: patient reviewed within database, no issues identified
[2016-10-18] MEDS ORDERED: OXYCODONE/ACETAMINOPHEN 5-325 TAB PO PRN (13:30)
[2016-10-18] MEDS ORDERED: EpHEDrine SULFATE INJ 50 MG/ML AMP IV PRN (13:30)
[2016-10-18] MEDS ORDERED: KETOROLAC TROMETHAMINE 30 MG/ML VIAL IV PRN (13:30)
[2016-10-18] MEDS ORDERED: ATROPINE SULFATE 0.1 MG/ML 5ML SYR IV PRN (13:30)
[2016-10-18] MEDS ORDERED: PHENAZOPYRIDINE HCL 200 MG TAB PO PRN (13:30)
--- NOTE | 2016-10-18 13:52 | Anesthesiology Progress Note ---
Anesthesia Post Op Note Date & Time Oct 18, 2016 at 13:51 Vital Signs Pain Intensity: 0 Vital Signs Past 12 Hours Date Time Temp Pulse Resp B/P Pulse Ox O2 Delivery O2 Flow Rate FiO2 10/18/16 13:45 107 16 157/92 97 Room Air 10/18/16 13:35 127 16 147/95 100 Mask 10 10/18/16 13:25 36.5 16 100 Mask 10 10/18/16 13:17 36.5 129 16 125/84 100 Mask 10 10/18/16 12:00 36.9 76 18 169/97 96 Room Air 10/18/16 10:40 77 18 164/88 94 10/18/16 09:11 84 16 167/99 97 Room Air 10/18/16 08:38 94 20 171/106 99 Room Air 10/18/16 08:07 37.1 94 20 170/113 98 Room Air Notes Mental Status: alert / awake / arousable, participated in evaluation Pt Amnestic to Procedure: Yes Nausea / Vomiting: adequately controlled Pain: adequately controlled Airway Patency, RR, SpO2: stable & adequate BP & HR: stable & adequate Hydration State: stable & adequate Anesthetic Complications: no major complications apparent
[2016-10-18 14:02] VITALS: BP 151/94; PULSE 88; TEMP 36.3; O2SAT 98
[2016-10-18] MEDS ORDERED: PHENAZOPYRIDINE HCL 200 MG TAB PO ONE (14:20)
[2016-10-18 14:30] VITALS: BP 152/98; PULSE 84; TEMP 36.5; O2SAT 95
[2017-03-16] MEDS ORDERED: TRAZ1TAB9 PO (10:15)
== END 2016-10-18 11:36 | disposition home or self-care (01) ==
LOC: EDBD 08:04 → C.EDA 08:05
DX: N20.1 Calculus of ureter (principal); N23 Unspecified renal colic; J45.909 Unspecified asthma, uncomplicated; F32.9 Major depressive disorder, single episode, unspecified; F17.200 Nicotine dependence, unspecified, uncomplicated; Z91.81 History of falling; Z86.718 Personal history of other venous thrombosis and embolism; Z87.01 Personal history of pneumonia (recurrent); Z90.89 Acquired absence of other organs; Z98.890 Other specified postprocedural states; Z83.3 Family history of diabetes mellitus; Z82.49 Family history of ischemic heart disease and other diseases of the circulatory system; Z79.899 Other long term (current) drug therapy

== ENCOUNTER 2016-12-30 17:47 | Emergency (ER) | payer OTHER ==
[~2016-12-30] VITALS: Ht 193 cm; Wt 89.5 kg
[~2016-12-30 17:47] MED LIST changes: -ATR25 PO; -ONDA4TAB10 SL; -OXYC1TAB3 PO
[2016-12-30 17:49] VITALS: TEMP 36.9; Ht 193 cm; Wt 89.5 kg
[2016-12-30] MEDS ORDERED: DIVA500T3 PO ×2 (18:29)
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
[2016-12-30] MEDS ORDERED: TRAM-10 PO (19:34)
--- NOTE | 2016-12-30 19:37 | EMERGENCY ROOM VISIT NOTE ---
ED Visit Note First contact with patient: 17:56 CHIEF COMPLAINT: Right Ankle and shoulder pain s/p fall HISTORY OF PRESENT ILLNESS: This 36-year-old male patient presents to the emergency department 2 days after sustaining an injury to the right shoulder and right ankle and foot when he fell off of a lawnmower. The patient states he was mowing the grass on a steep hill, and fell onto his right side. The patient is uncertain of the exact mechanism of injury of the ankle. The patient complains of pain along the outside of the ankle. The patient does not complain of pain of the foot, however does state he is unable to feel the right foot. The patient rates the pain in the ankle as constant and 7/10. The patient is able to bear weight on the foot. Constant pain, worse with movement , weight bearing, and the dependent position. No knee pain, the patient is able to move their toes. No laceration. The patient has not had a previous fracture to this ankle. The patient also complains of right shoulder pain. He states this pain seemed to subside as initially after the injury, however today, he was lifting a TV, and upon lowering it back down, he began experiencing increased pain in the shoulder. He states he did hear a pop at this time. There is moderate limitation of motion of the arm because of the pain. The pain is moderate, constant and increases with motion of the hand and arm. The patient states the pain is burning and 9/10. No previous significant previous shoulder disease or injury. No numbness or tingling. No neck or back pain. No chest pain or shortness of breath. No abdominal pain or nausea/vomiting. No cough. The patient has taken Advil 400 mg every 6 hours and Aleve, 440 mg every 4 hours for the pain since the initial injury. The patient denies any other injury. REVIEW OF SYSTEMS: A 6 system review of systems was completed with positives and pertinent negatives listed in the HPI. ALLERGIES: Bee sting, prednisone MEDICATIONS: See list. I have personally reviewed medications with the patient. PMH: Depression SOCIAL HISTORY: Lives locally with his family. He denies drug and alcohol use. He does admit to smoking one half pack cigarettes per day. PHYSICAL EXAM: Vital Signs: Reviewed Nurse's notes, vital signs stable. GENERAL : 36-year-old male, no acute distress, but appears in pain, well-developed, well -nourished. MENTAL STATUS: Alert, oriented to person place and time, and cooperative. NECK: No tenderness to palpation over the cervical spine. Neck is supple, no masses noted on palpation. HEART: Regular rate and rhythm without murmurs gallops or rubs. LUNGS: Clear to auscultation bilaterally without wheezes, rales or rhonchi. No accessory muscle use. No retractions. MUSCULOSKELETAL: The right ankle is swollen and tender over the lateral malleolus, but the skin is intact and there is no ligamentous instability. There is no fifth metatarsal tenderness. There is no tenderness over the rest of the foot. There is no calf or tibia/fibular tenderness. There is no visual deformity. The foot and toes are warm and well-perfused. Dorsalis pedis pulse 2+. Sensation to pain and light touch is intact. Capillary refill less than 2 seconds. There is no deformity in the contour of the right shoulder and there are no maurizio deformities noted. There is no sulcus sign. There is tenderness over the entire shoulder. The patient's range of motion is due to pain. Supraspinatus strength 5/5. There is no clavicle tenderness. No tenderness of the humerus, elbow, wrist, or hand. Block Trader strength 5/5. Radial pulse 2+. RADIOLOGY: X-ray Right shoulder: DISCUSSION: No fractures or dislocations of the right shoulder are visualized. There is minimal age-indeterminate irregularity of the right fifth rib. IMPRESSION: 1. No shoulder fractures or dislocations identified 2. Minimal age-indeterminate irregularity of the right fifth rib X-ray Right ankle: DISCUSSION: No acute fractures or dislocations are visualized. There is Achilles insertional and plantar calcaneal spurring. IMPRESSION: No acute fractures. Calcaneal spurring. X-ray Right foot: DISCUSSION: No acute fractures or dislocations are visualized. There is plantar and Achilles insertional spurring. There is a first metatarsal head spur. IMPRESSION: 1. No acute fractures 2. Calcaneal spurring 3. Arthritic changes at the level of the first metatarsal phalangeal joint EMERGENCY DEPARTMENT COURSE: I examined the patient. X-rays of the right shoulder and right ankle/foot were reviewed by myself and read by radiology and reveal no acute process. A gel ankle splint was applied to the ankle under my direction and the position was satisfactory. An arm sling was applied to the right arm to decrease movement of the shoulder. Neurovascular status was rechecked and intact. The patient was discharged home in good condition. I did personally review PDMP prior to prescribing narcotics to the patient. No concerning findings noted. DIFFERENTIAL DIAGNOSIS: Ankle contusion, ankle fracture, distal fibular fracture , compartment syndrome, and others.Right shoulder fracture, proximal humerus fracture, scapular fracture, clavicle fracture, sprain or tear of rotator cuff muscles, and others. DIAGNOSIS: Right ankle sprain, right shoulder contusion DISCHARGE INSTRUCTIONS: You have been treated in the Emergency Department for an Ankle sprain, and shoulder contusion. You have been prescribed tramadol to be used for pain control. This is a narcotic medication. You cannot drive or consume alcohol while on this medicine. This medicine should only be used for pain that cannot be controlled with jfop-asf-dwtmalu pain medicines. For pain control, you can use the following vjci-stq-biqtele medicines (if >12 yo): - Regular strength (325mg/tab) Tylenol (acetaminophen) 2 tabs every 4-6 hours as needed. Do not exceed 12 tablets in a 24 hour period. Avoid taking more than 4 grams (4000 mg) of Tylenol per day. This includes any other sources of acetaminophen you may take on a regular basis. - Regular strength (200 mg/tab) Advil (ibuprofen) 1-2 tabs every 4-6 hours as needed. Do not exceed a dose of 3200 mg per day. If this is a recent injury (<24 hrs), ice can be applied to the area of pain for the first 3 days to help decrease pain and inflammation. You have been provided the number for an Orthopaedic Surgeon. You should call this number as soon as possible to establish a follow-up visit from today's Emergency Department visit. Keep the ankle brace/splint in place until cleared by Orthopedics. Wear the arm sling as instructed until you do not have pain in the shoulder. Return to the Emergency Department if your current symptoms worsen despite treatment course outlined above, or if you develop any of the following symptoms : intractable pain despite aforementioned treatment course or new onset of numbness or tingling of the foot or arm. Problem List Medical Problems: (1) Abdominal pain Status: Resolved (2) Abscess of leg, right Status: Resolved (3) Abscess, earlobe Status: Resolved (4) Alcohol abuse Status: Resolved (5) Alcohol intoxication Status: Resolved (6) Ankle pain Status: Resolved (7) Asthma Status: Chronic (8) Asthma exacerbation Status: Resolved (9) Bilateral otitis externa Status: Resolved (10) Blood Clots Status: Resolved (11) Bronchitis Status: Resolved (12) Cellulitis of right ear Status: Resolved (13) Cellulitis of right earlobe Status: Resolved (14) Cervical strain Status: Resolved (15) Chronic hip pain Status: Chronic (16) Contusion of left hand including fingers Status: Resolved (17) Contusion of multiple sites Status: Resolved (18) Dehydration Status: Resolved (19) Depression Status: Resolved (20) Depression Status: Chronic (21) Encounter for removal of abscess packing Status: Resolved (22) Fall due to slipping on ice or snow Status: Resolved (23) Headache Status: Resolved (24) Headache Status: Resolved (25) Headache Status: Resolved (26) Hematemesis Status: Resolved (27) Hx-Venous Thrombosis&Embolism Status: Chronic (28) Infected sebaceous cyst Status: Resolved (29) Moderate recurrent major depression Status: Resolved (30) Nausea and vomiting Status: Resolved (31) Numbness on right side Status: Resolved (32) Pharyngitis Status: Resolved (33) Pharyngitis Status: Resolved (34) Pneumonia Status: Resolved (35) Pneumonitis Status: Resolved (36) Right calf pain Status: Resolved (37) Right knee pain Status: Resolved (38) Right upper quadrant abdominal pain Status: Resolved (39) Single major depressive episode Status: Resolved (40) Stomach Problems Status: Chronic (41) Strain of thoracic spine Status: Resolved (42) Suicidal ideation Status: Resolved (43) URI (upper respiratory infection) Status: Resolved (44) URI, acute Status: Resolved (45) Vomiting Status: Resolved (46) Vomiting and diarrhea Status: Resolved Surgical Problems: (1) Appendectomy Status: Resolved (2) Knee Surgery Status: Resolved Current/Historical Medications Scheduled Divalproex Sodium (Depakote Er), 500 MG PO QAM Divalproex Sodium (Depakote Er), 1,000 MG PO HS Trazodone Hcl (Desyrel), 100 MG PO HS Scheduled PRN Tramadol (Ultram), 50 MG PO Q8H PRN for Pain Allergies Coded Allergies: Prednisone (Unverified Allergy, Unknown, hives, 10/15/16) BEE STING (Verified Adverse Reaction, Mild, UNKNOWN, 10/15/16) Vital Signs Date Time Temp Pulse Resp B/P (MAP) Pulse Ox O2 Delivery O2 Flow Rate FiO2 12/30/16 19:47 63 18 152/93 100 12/30/16 17:49 36.9 87 18 158/110 94 Room Air Departure Information Impression Primary Impression: Right shoulder pain Additional Impression: Right ankle sprain Dispostion Home / Self-Care Condition GOOD Prescriptions Tramadol (Ultram) 50 Mg Tab 50 MG PO Q8H Y for Pain for 3 Days, #9 TAB Prov: Rebecca Perkins PA-C 12/30/16 Referrals Hi Mendez M.D. (MEDICAL) (PCP) Shane Courtney M.D. Patient Instructions ED Sprain Ankle, ED Sprain Shoulder, [facility] Additional Instructions You have been treated in the Emergency Department for an Ankle sprain, and shoulder contusion. You have been prescribed tramadol to be used for pain control. This is a narcotic medication. You cannot drive or consume alcohol while on this medicine. This medicine should only be used for pain that cannot be controlled with hjsf-gsy-qohxalb pain medicines. For pain control, you can use the following omlz-ejm-bbwqmil medicines (if >12 yo): - Regular strength (325mg/tab) Tylenol (acetaminophen) 2 tabs every 4-6 hours as needed. Do not exceed 12 tablets in a 24 hour period. Avoid taking more than 4 grams (4000 mg) of Tylenol per day. This includes any other sources of acetaminophen you may take on a regular basis. - Regular strength (200 mg/tab) Advil (ibuprofen) 1-2 tabs every 4-6 hours as needed. Do not exceed a dose of 3200 mg per day. If this is a recent injury (<24 hrs), ice can be applied to the area of pain for the first 3 days to help decrease pain and inflammation. You have been provided the number for an Orthopaedic Surgeon. You should call this number as soon as possible to establish a follow-up visit from today's Emergency Department visit. Keep the ankle brace/splint in place until cleared by Orthopedics. Wear the arm sling as instructed until you do not have pain in the shoulder. Return to the Emergency Department if your current symptoms worsen despite treatment course outlined above, or if you develop any of the following symptoms : intractable pain despite aforementioned treatment course or new onset of numbness or tingling of the foot or arm. Problem Qualifiers Primary Impression: Right shoulder pain Chronicity: acute Qualified Codes: M25.511 - Pain in right shoulder Additional Impression: Right ankle sprain Encounter type: initial encounter Involved ligament of ankle: unspecified ligament Qualified Codes: S93.401A - Sprain of unspecified ligament of right ankle, initial encounter
[2016-12-30 19:47] VITALS: BP 152/93; PULSE 63; O2SAT 100
[2017-03-16] MEDS ORDERED: TRAZ1TAB8 PO (10:15)
== END 2016-12-30 19:47 | disposition home or self-care (01) ==
LOC: C.EDB 17:48 → C.EDD 19:47
DX: M25.511 Pain in right shoulder (principal); S93.401A Sprain of unspecified ligament of right ankle, initial encounter; W19.XXXA Unspecified fall, initial encounter; Y93.H9 Activity, other involving exterior property and land maintenance, building and construction; F32.9 Major depressive disorder, single episode, unspecified; F17.210 Nicotine dependence, cigarettes, uncomplicated; J45.909 Unspecified asthma, uncomplicated; Z86.718 Personal history of other venous thrombosis and embolism; Z87.01 Personal history of pneumonia (recurrent); Z79.899 Other long term (current) drug therapy

== ENCOUNTER 2017-02-01 20:17 | Emergency (ER) | payer OTHER ==
[~2017-02-01] VITALS: Ht 193 cm; Wt 88.7 kg
[~2017-02-01 20:17] MED LIST changes: +DIVA500T3 PO; -OXYC-57 PO
[2017-02-01 20:23] VITALS: BP 144/82; PULSE 76; TEMP 36.9; O2SAT 98; Ht 193 cm; Wt 88.7 kg
[2017-02-01] MEDS ORDERED: NORCO 5/325MG HOME PACK PO ONE (21:15)
[2017-02-01] MEDS ORDERED: AMOXICILLIN 250 MG CAP PO ONE (21:15)
--- NOTE | 2017-02-01 21:22 | EMERGENCY ROOM VISIT NOTE ---
ED Visit Note First contact with patient: 20:58 CHIEF COMPLAINT: Toothache HISTORY OF PRESENT ILLNESS: This patient is a 36-year-old male that presents to the emergency department complaining of right lower molar pain that started this morning when he woke up. He also notes swelling to the side of his face. He denies any fever. He has not tried anything ydch-oen-jtsagbs for pain. He has had problems with his upper teeth, but never his lower teeth. He has had all of his upper teeth removed. He denies any difficulty swallowing. No shortness of breath. REVIEW OF SYSTEMS: A 6 system review of systems was completed with positives and pertinent negatives listed in the HPI. ALLERGIES: Prednisone MEDICATIONS: Reviewed PMH: History of DVT, asthma SOCIAL HISTORY: Smokes a half pack of cigarettes per day, denies EtOH use PHYSICAL EXAM: Vitals are noted on the nurse's note and reviewed by myself. Vital signs stable. Temperature 36.9C orally. GENERAL: 36-year-old male, in no acute distress, nondiaphoretic, well-developed well-nourished. Mouth: All upper teeth removed. Lower teeth with very poor dentition throughout. Gum is diffusely swollen over the right lower molars. No abscess seen. The airway is patent. Lymphadenopathy noted in the anterior cervical chain bilaterally. Swelling over the right mandibular area. HEART: RRR, no murmurs PULM:clear to auscultation bilaterally ED COURSE: The patient was seen and examined. He was given amoxicillin 500 mg po. He was given 1 dose of norco and ibuprofen. He was provided a whole pack of [place]. Discharge instructions were reviewed, and the patient was discharged in good condition DIAGNOSIS: Odontalgia DISCHARGE INSTRUCTIONS & TREATMENT: You have been treated in the Emergency Department for Dental Pain. You have received pain medicine in the emergency department which impairs your ability to operate a vehicle. It is illegal for you to drive after receiving these medicines. You have been prescribed [place] to be used for pain control. This is a narcotic medication. You cannot drive or consume alcohol while on this medicine. This medicine should only be used for pain that cannot be controlled with over-the- counter pain medicines. You were prescribed amoxicillin to be taken 3 times daily for 10 days. This is an antibiotic. All antibiotics have the potential to cause diarrhea. Stop this medication and contact a medical provider if you were to develop any significant adverse side effects including: wheezing, shortness of breath, passing out, vomiting, or a diffuse rash. Always take antibiotics as directed and COMPLETE the ENTIRE course regardless of the improvement of your symptoms. For pain control, you can use the following eddt-bzv-yeyydjs medicines (if >12 yo): - Regular strength (200 mg/tab) Advil (ibuprofen) 1-2 tabs every 4-6 hours as needed. Do not exceed a dose of 3200 mg per day. Refrain from smoking cigarettes or using chewing tobacco until you have been evaluated by your dentist. Keeping beverages lukewarm and consuming soft foods can decrease your pain. Warm compresses over the affected area may offer some relief. You MUST seek evaluation of your dental pain by a dentist following your visit to the Emergency Department. The Emergency Department is not capable of treating dental issues long-term. You should call your dentist as soon as possible to make an appointment for evaluation of your dental pain. If you cannot see a dentist, please follow up with your primary care physician within the next 3-5 days for a recheck Return to the emergency department if you develop the following symptoms despite treatment course outlined above: fever, intractable pain, increased redness, swelling, or purulent discharge.
[2017-02-01] MEDS ORDERED: AMOX500T3 PO (21:23)
[2017-02-01] MEDS ORDERED: HYDR-5688 PO (21:23)
[2017-02-01] MEDS ORDERED: HYDROCODONE/ACETAMOPHEN 5/325MG TAB PO STA (21:24)
[2017-02-01] MEDS ORDERED: IBUPROFEN 600 MG TAB PO STA (21:24)
[2017-03-16] MEDS ORDERED: TRAZ1TAB8 PO (10:15)
== END 2017-02-01 21:45 | disposition home or self-care (01) ==
LOC: C.EDB 20:18 → C.EDD 21:45
DX: K08.89 Other specified disorders of teeth and supporting structures (principal); F17.210 Nicotine dependence, cigarettes, uncomplicated

== ENCOUNTER 2017-03-16 18:03 | Emergency (ER) | payer OTHER ==
[~2017-03-16] VITALS: Ht 193 cm; Wt 87.2 kg
[~2017-03-16 18:03] MED LIST changes: +AMOX500T3 PO; -DIVA500T3 PO; +HYDR-5688 PO; +TRAZ1TAB8 PO
[2017-03-16 18:15] VITALS: TEMP 36.8; Ht 193 cm; Wt 87.2 kg
--- NOTE | 2017-03-16 19:56 | DIAGNOSTIC IMAGING REPORT ---
RIGHT KNEE 3 VIEWS CLINICAL HISTORY: Right knee pain status post fall. COMPARISON: Right knee radiograph August 28, 2015. FINDINGS: Alignment of the right knee is anatomic. There is a small right knee joint effusion. No acute fracture is identified. There is mild osteophytosis within the medial and patellofemoral compartments of the right knee. IMPRESSION: 1. No acute fracture. 2. Small right knee joint effusion. Electronically signed by: Homero Wallace M.D. 03/16/2017 7:54 PM Dictated Date/Time: 03/16/2017 7:53 PM
[2017-03-16] MEDS ORDERED: KETOROLAC TROMETHAMINE 60 MG/2 ML VIAL IM STA (20:19)
[2017-03-16 20:26] VITALS: BP 120/70; PULSE 67; O2SAT 96
[2017-03-16] MEDS ORDERED: IBUP-1050 PO (20:43)
[2017-03-16] MEDS ORDERED: ACET-1256 PO (20:43)
--- NOTE | 2017-03-17 00:42 | EMERGENCY ROOM VISIT NOTE ---
History First contact with patient: 18:50 Chief Complaint: KNEEPAIN Stated Complaint: SEVERE RT KNEE PAIN History of Present Illness The patient is a 36 year old male who presents to the Emergency Room with complaints of right knee pain after his knee popped while carrying a 5 gallon bucket of paint. He reports pain mostly over the front of the knee. He does not recall a deformity of the knee. The patient reports that he has had arthroscopic knee surgery 2 of this knee for meniscal injuries. Weightbearing worsens his discomfort to a 9 out of 10. He denies any instability with what limited weightbearing he has been able to tolerate. He denies any paresthesias or numbness of the right lower extremity. Review of Systems 10 system review was performed and was negative except for pertinent positives and negatives as indicated in history of present illness Past Medical/Surgical History Medical Problems: (1) Abdominal pain (2) Abscess of leg, right (3) Abscess, earlobe (4) Alcohol abuse (5) Alcohol intoxication (6) Ankle pain (7) Asthma (8) Asthma exacerbation (9) Bilateral otitis externa (10) Blood Clots (11) Bronchitis (12) Cellulitis of right ear (13) Cellulitis of right earlobe (14) Cervical strain (15) Chronic hip pain (16) Contusion of left hand including fingers (17) Contusion of multiple sites (18) Dehydration (19) Depression (20) Depression (21) Encounter for removal of abscess packing (22) Fall due to slipping on ice or snow (23) Headache (24) Headache (25) Headache (26) Hematemesis (27) Hx-Venous Thrombosis&Embolism (28) Infected sebaceous cyst (29) Moderate recurrent major depression (30) Nausea and vomiting (31) Numbness on right side (32) Pharyngitis (33) Pharyngitis (34) Pneumonia (35) Pneumonitis (36) Right calf pain (37) Right knee pain (38) Right upper quadrant abdominal pain (39) Single major depressive episode (40) Stomach Problems (41) Strain of thoracic spine (42) Suicidal ideation (43) URI (upper respiratory infection) (44) URI, acute (45) Vomiting (46) Vomiting and diarrhea Surgical Problems: (1) Appendectomy (2) Knee Surgery Family History Diabetes mellitus Hypertension Social History Smoking Status: Current Every Day Smoker Alcohol Use: heavy Drug Use: none Marital Status: single Housing Status: lives with family Occupation Status: unemployed Current/Historical Medications Scheduled Trazodone Hcl (Desyrel), 100 MG PO HS Scheduled PRN Acetaminophen (Tylenol), 1,000 MG PO Q6H PRN for Pain Ibuprofen (Advil), 400 MG PO Q6H PRN for Pain Physical Exam Vital Signs Date Time Temp Pulse Resp B/P (MAP) Pulse Ox O2 Delivery O2 Flow Rate FiO2 03/16/17 20:26 67 20 120/70 96 Room Air 03/16/17 18:15 36.8 75 18 122/78 96 Room Air Physical Exam CONSTITUTIONAL: Healthy and well nourished. Alert and oriented X 3 with positive affect. Patient does not appear in any acute distress. HEENT: Normocephalic, atraumatic. Pupils equal, round and reactive. NECK: Full active range of motion without discomfort. MUSCULOSKELETAL: Examination shows mild edema with peripatellar tenderness to palpation and positive patellar grind test. He is able to straight leg raise. No joint effusion noted. Collateral ligaments are intact with varus and valgus stress. Limited ligamentous exam does not show any obvious instability of the anterior cruciate ligament or PCL. No popliteal masses. Distal pulses are intact. INTEGUMENTARY: No rash or other significant dermatologic conditions noted. NEUROLOGIC: No focal neurologic deficits noted. Medical Decision & Procedures ER Provider Diagnostic Interpretation: My interpretation of right knee x-rays does not show any obvious factors, dislocations or significant joint effusion. Radiologist report is as follows: RIGHT KNEE 3 VIEWS CLINICAL HISTORY: Right knee pain status post fall. COMPARISON: Right knee radiograph August 28, 2015. FINDINGS: Alignment of the right knee is anatomic. There is a small right knee joint effusion. No acute fracture is identified. There is mild osteophytosis within the medial and patellofemoral compartments of the right knee. IMPRESSION: 1. No acute fracture. 2. Small right knee joint effusion. Medications Administered Medications (Trade) Dose Ordered Sig/Elías Route Start Time Stop Time Status Last Admin Dose Admin Ketorolac Tromethamine (Toradol Inj) 60 mg NOW STAT IM 03/16/17 20:19 03/16/17 20:21 DC 03/16/17 20:41 60 MG ED Course Patient history and physical exam were performed. Nurse's notes were reviewed. The patient had gone to x-ray prior to my exam. X-rays of the right knee, ordered through nursing protocol, did not show any acute injuries. Clinical exam shows mostly anterior knee involvement. The patient was fitted with a knee immobilizer and crutches. He was encouraged to intermittently apply ice to the knee. I be peripheral and Tylenol in alternating fashion if needed for additional pain relief. He was encouraged to follow-up with [facility] for further reevaluation and management. The patient voiced understanding of all discharge instructions, was happy with plan of care, and rated his discomfort a 4 out of 10 at the conclusion of my exam. Medical Decision Medication Reconcilliation Current Medication List: was personally reviewed by me Blood Pressure Screening Patient's blood pressure: Normal blood pressure Impression Primary Impression: Right anterior knee pain Departure Information Referrals Hi Mendez M.D. (MEDICAL) (PCP) Patient Instructions My [facility]
== END 2017-03-16 20:48 | disposition home or self-care (01) ==
LOC: C.EDB 18:04 → C.EDD 20:48
DX: M25.561 Pain in right knee (principal); F10.10 Alcohol abuse, uncomplicated; J45.909 Unspecified asthma, uncomplicated; M25.559 Pain in unspecified hip; G89.29 Other chronic pain; F33.1 Major depressive disorder, recurrent, moderate; F17.200 Nicotine dependence, unspecified, uncomplicated; Z86.718 Personal history of other venous thrombosis and embolism

== ENCOUNTER 2017-09-18 21:33 | Emergency (ER) | payer OTHER ==
[~2017-09-18] VITALS: Ht 193 cm; Wt 88.1 kg
[~2017-09-18 21:33] MED LIST changes: +ACET-1256 PO; -AMOX500T3 PO; -HYDR-5688 PO; +IBUP-1050 PO; +TRAZ-122 PO; -TRAZ1TAB8 PO
[2017-09-18 21:35] VITALS: TEMP 36.9; Ht 193 cm; Wt 88.1 kg
[2017-09-18] MEDS ORDERED: XYLOCAINE 1%/SOD BICARB 20 ML VIAL INFIL ONE (22:15)
[2017-09-18] MEDS ORDERED: SULF800T23 PO (23:09)
[2017-09-18] MEDS ORDERED: HYDR-5688 PO (23:09)
--- NOTE | 2017-09-18 23:12 | EMERGENCY ROOM VISIT NOTE ---
History First contact with patient: 21:52 Chief Complaint: HEADACHE Stated Complaint: MEZA, CYST IN R EAR AND SEVERE PAIN History of Present Illness The patient is a 37 year old male who presents to the Emergency Room with complaints of an infected cyst on his right ear. The patient states he has had similar episodes in the past and has had to have the abscess drained. He states he has had pain in the right ear for the past 3 days. It is a throbbing pain and radiates into his head. He rates the discomfort a 9/10. He has taken Tylenol without improvement. The pain is worse with palpation of the area. He denies any fevers or drainage. The patient states he has seen ENT in the past for this and was told that he may need to have it removed in the future. He was told that it flares up due to stress. Review of Systems A complete 10 point review of systems was reviewed with the patient with pertinent positives and negatives as per history of present illness. All else were negative. Past Medical/Surgical History Medical Problems: (1) Abdominal pain (2) Abscess of leg, right (3) Abscess, earlobe (4) Alcohol abuse (5) Alcohol intoxication (6) Ankle pain (7) Asthma (8) Asthma exacerbation (9) Bilateral otitis externa (10) Blood Clots (11) Bronchitis (12) Cellulitis of right ear (13) Cellulitis of right earlobe (14) Cervical strain (15) Chronic hip pain (16) Contusion of left hand including fingers (17) Contusion of multiple sites (18) Dehydration (19) Depression (20) Depression (21) Encounter for removal of abscess packing (22) Fall due to slipping on ice or snow (23) Headache (24) Headache (25) Headache (26) Hematemesis (27) Hx-Venous Thrombosis&Embolism (28) Infected sebaceous cyst (29) Moderate recurrent major depression (30) Nausea and vomiting (31) Numbness on right side (32) Pharyngitis (33) Pharyngitis (34) Pneumonia (35) Pneumonitis (36) Right calf pain (37) Right knee pain (38) Right upper quadrant abdominal pain (39) Single major depressive episode (40) Stomach Problems (41) Strain of thoracic spine (42) Suicidal ideation (43) URI (upper respiratory infection) (44) URI, acute (45) Vomiting (46) Vomiting and diarrhea Surgical Problems: (1) Appendectomy (2) Knee Surgery Family History Diabetes mellitus Hypertension Social History Smoking Status: Current Every Day Smoker Alcohol Use: heavy Drug Use: none Marital Status: single Housing Status: lives with family Occupation Status: unemployed Current/Historical Medications Scheduled Sulfa/Trimethoprim (Bactrim Ds 800MG/160MG), 1 TAB PO BID Trazodone Hcl (Desyrel), 100 MG PO HS Scheduled PRN Acetaminophen (Tylenol), 1,000 MG PO Q6H PRN for Pain Hydrocodone/Acetaminophen 5MG/325MG ([place] 5MG/325MG), 1-2 TABLET PO Q4H PRN for Pain Ibuprofen (Advil), 400 MG PO Q6H PRN for Pain Physical Exam Vital Signs Date Time Temp Pulse Resp B/P (MAP) Pulse Ox O2 Delivery O2 Flow Rate FiO2 09/18/17 23:24 83 20 154/74 94 09/18/17 21:35 36.9 Room Air Physical Exam VITALS: Vitals are noted on the nurse's note and reviewed by myself. Vital signs stable. GENERAL: This is a 37-year-old male, in no acute distress, nondiaphoretic, well- developed well-nourished. SKIN: There is an edematous erythematous, fluctuant mass with diameter approximately 2 cm where the right earlobe meets the jaw. There is no pointing or drainage. It is exquisitely tender to palpation. There is no significant surrounding erythema. EARS: External auditory canals clear, tympanic membranes pearly vasquez without erythema or effusion bilaterally. EYES: Pupils equal round and reactive to light and accommodation. MOUTH: Mucous membranes moist. Tonsils are not enlarged. Pharynx without erythema or exudate. NECK: Supple without nuchal rigidity. No lymphadenopathy. HEART: Regular rate and rhythm without murmurs gallops or rubs. LUNGS: Clear to auscultation bilaterally without wheezes, rales or rhonchi. NEURO: Patient was alert and oriented to person place and time. Medical Decision & Procedures Medications Administered Medications (Trade) Dose Ordered Sig/Elías Route Start Time Stop Time Status Last Admin Dose Admin Trimethoprim/ Sulfamethoxazole (Sulfameth/ Trimeth Ds 800/ 160MG Home Pack) 1 homepack UD ONCE PO 09/18/17 23:15 3/25/18 23:16 DC 09/18/17 23:15 1 HOMEPACK Acetaminophen/ Hydrocodone Bitart ([place] 5/325mg Home Pack) 1 homepack UD ONCE PO 09/18/17 23:15 09/18/17 23:16 DC 09/18/17 23:15 1 HOMEPACK Procedure I examined the patient. Verbal consent was obtained to perform the procedure. After saline and Betadine cleansing and 2 mL of 1% buffered lidocaine anesthesia , the abscess was incised with a number 11 scalpel blade. A large amount of purulent material was released with more expressed by pressure. A swab was obtained for culture. The abscess cavity was further probed with a needle racing driver and the deep pocket expressed. The abscess cavity was then copiously irrigated with sterile saline under pressure. The area was then packed with plain packing. The area was cleaned with sterile saline and dressed with bacitracin and a bulky bandage. Medical Decision Differential diagnosis includes cellulitis, abscess, sebaceous cyst, among others. The patient was evaluated as above. He presents with an abscess to the right earlobe. Incision and drainage was performed as noted in the procedure section. The patient tolerated the procedure well. Culture was obtained and is pending. The patient will be placed on Bactrim. He was given a short course of [place] for pain. He was instructed to begin follow-up with ENT to discuss removal of the abscess cavity. He will return or go to his primary care provider in 48 hours for packing removal. He verbalized understanding of my assessment and treatment plan was discharged home in good condition. Medication Reconcilliation Current Medication List: was personally reviewed by me Blood Pressure Screening Patient's blood pressure: Elevated blood pressure Blood pressure disposition: Elevated BP felt to be situational Impression Primary Impression: Abscess, earlobe Departure Information Dispostion Home / Self-Care Condition GOOD Prescriptions Sulfa/Trimethoprim (Bactrim Ds 800MG/160MG) Tab 1 TAB PO BID for 7 Days, #14 TAB Prov: Corrina Brewer PA-C 09/18/17 Hydrocodone/Acetaminophen 5MG/325MG ([place] 5MG/325MG) Tab 1-2 TABLET PO Q4H Y for Pain, #10 TAB For Initial Treatment Prov: Corrina Brewer PA-C 09/18/17 Referrals Hi Mendez M.D. (MEDICAL) (PCP) Patient Instructions My [facility] Additional Instructions You were seen in the Emergency Department for Incision and Drainage of your ear abscess. You will NEED to return to the Emergency Department to have the packing removed/changed in 48 hours. This packing is NOT dissolvable and WILL need to be removed by a health care provider. Try to leave the packing in place until you return to the Emergency Department. You have been prescribed [place] to be used for pain control. This is a narcotic medication. You cannot drive or consume alcohol while on this medicine. This medicine should only be used for pain that cannot be controlled with over-the- counter pain medicines. You were prescribed Bactrim to be taken twice daily for 7 days. Both of these medications are antibiotics. Stop these medications and contact a medical provider if you were to develop any significant adverse side effects including: wheezing, shortness of breath, passing out, vomiting, or a diffuse rash. Always take antibiotics as directed and COMPLETE the ENTIRE course regardless of the improvement of your symptoms. Proper wound care is essential for adequate wound healing and infection prevention. You can shower and clean the wound with soap and water. Do not scour over the wound. Pat dry with a towel. Do not submerse the wound (i.e. bathe or dish wash) until the sutures have been removed. You can use an antibiotic ointment with a dressing over the wound for the next 3-4 days. After this time you may leave the wound dry and open to the air. If crust develops over the wound you can use a Q-tip to apply a 1:1 peroxide:water solution to clean the wound. Look for signs of infection of the wound including: increased pain, swelling, foul discharge, streaking, or increased temperature. If any of these are noticed you should return to the Emergency Department for further assessment and treatment. As with any laceration you may have received nerve damage to the surrounding tissues. This damage may or may not be permanent. For pain control, you can use the following hihz-yov-bspvcxx medicines (if >12 yo): - Regular strength (325mg/tab) Tylenol (acetaminophen) 2 tabs every 4-6 hours as needed. Do not exceed 12 tablets in a 24 hour period. Avoid taking more than 4 grams (4000 mg) of Tylenol per day. This includes any other sources of acetaminophen you may take on a regular basis. - Regular strength (200 mg/tab) Advil (ibuprofen) 1-2 tabs every 4-6 hours as needed. Do not exceed a dose of 3200 mg per day. Return to the emergency department if your symptoms worsen despite treatment course outlined above. Problem Qualifiers Primary Impression: Abscess, earlobe Laterality: right Qualified Codes: H60.01 - Abscess of right external ear
[2017-09-18] MEDS ORDERED: NORCO 5/325MG HOME PACK PO ONE (23:15)
[2017-09-18] MEDS ORDERED: SEPTRA DS HOME PACK 1 EA VIAL PO ONE (23:15)
[2017-09-18 23:24] VITALS: BP 154/74; PULSE 83; O2SAT 94
== END 2017-09-18 23:26 | disposition home or self-care (01) ==
LOC: C.EDB 21:33 → C.EDD 23:26
DX: H60.01 Abscess of right external ear (principal); R03.0 Elevated blood-pressure reading, without diagnosis of hypertension; J45.909 Unspecified asthma, uncomplicated; F17.200 Nicotine dependence, unspecified, uncomplicated; F10.99 Alcohol use, unspecified with unspecified alcohol-induced disorder; Z83.3 Family history of diabetes mellitus; Z82.49 Family history of ischemic heart disease and other diseases of the circulatory system

== ENCOUNTER 2017-09-21 22:46 | Emergency (ER) | payer OTHER ==
[~2017-09-21] VITALS: Ht 193 cm; Wt 88.0 kg
[~2017-09-21 22:46] MED LIST changes: +HYDR-5688 PO; +SULF800T23 PO
[2017-09-21 22:53] VITALS: TEMP 36.9; Ht 193 cm; Wt 88.0 kg
--- NOTE | 2017-09-21 23:08 | EMERGENCY ROOM VISIT NOTE ---
ED Visit Note First contact with patient: 22:53 CHIEF COMPLAINT: Packing removal HISTORY OF PRESENT ILLNESS: This 37-year-old male patient presents to the emergency department for packing removal of an abscess that was incised and drained at this facility 3 days ago. Previous care outlined has been followed without difficulty. The patient has not had any worsening of symptoms. He is tolerating his antibiotics well.. REVIEW OF SYSTEMS: A 6 system review of systems was completed with positives and pertinent negatives listed in the HPI. ALLERGIES: Bee stings, prednisone MEDICATIONS: See EMR PMH: Unchanged from previous visit. PHYSICAL EXAM: Vital Signs reviewed, see Nurse's notes. Patient is afebrile, vital signs stable. GENERAL: White male, awake, alert, well appearing, no acute distress SKIN: Packing is appropriately in place behind the right lobe of the right ear. There is no significant continued purulent discharge. The redness has decreased. The wound is healing well. NEURO: No sensory or motor deficits noted. EMERGENCY DEPARTMENT COURSE AND DECISION MAKING: I examined the patient. The packing was removed from behind the right earlobe. The wound is healing well. He is to continue his antibiotics. Discharge instructions reviewed. Discharged in stable condition. Problem List Medical Problems: (1) Abdominal pain Status: Resolved (2) Abscess of leg, right Status: Resolved (3) Abscess, earlobe Status: Resolved (4) Alcohol abuse Status: Resolved (5) Alcohol intoxication Status: Resolved (6) Ankle pain Status: Resolved (7) Asthma Status: Chronic (8) Asthma exacerbation Status: Resolved (9) Bilateral otitis externa Status: Resolved (10) Blood Clots Status: Resolved (11) Bronchitis Status: Resolved (12) Cellulitis of right ear Status: Resolved (13) Cellulitis of right earlobe Status: Resolved (14) Cervical strain Status: Resolved (15) Chronic hip pain Status: Chronic (16) Contusion of left hand including fingers Status: Resolved (17) Contusion of multiple sites Status: Resolved (18) Dehydration Status: Resolved (19) Depression Status: Resolved (20) Depression Status: Chronic (21) Encounter for removal of abscess packing Status: Resolved (22) Fall due to slipping on ice or snow Status: Resolved (23) Headache Status: Resolved (24) Headache Status: Resolved (25) Headache Status: Resolved (26) Hematemesis Status: Resolved (27) Hx-Venous Thrombosis&Embolism Status: Chronic (28) Infected sebaceous cyst Status: Resolved (29) Moderate recurrent major depression Status: Resolved (30) Nausea and vomiting Status: Resolved (31) Numbness on right side Status: Resolved (32) Pharyngitis Status: Resolved (33) Pharyngitis Status: Resolved (34) Pneumonia Status: Resolved (35) Pneumonitis Status: Resolved (36) Right calf pain Status: Resolved (37) Right knee pain Status: Resolved (38) Right upper quadrant abdominal pain Status: Resolved (39) Single major depressive episode Status: Resolved (40) Stomach Problems Status: Chronic (41) Strain of thoracic spine Status: Resolved (42) Suicidal ideation Status: Resolved (43) URI (upper respiratory infection) Status: Resolved (44) URI, acute Status: Resolved (45) Vomiting Status: Resolved (46) Vomiting and diarrhea Status: Resolved Surgical Problems: (1) Appendectomy Status: Resolved (2) Knee Surgery Status: Resolved Current/Historical Medications Scheduled Sulfa/Trimethoprim (Bactrim Ds 800MG/160MG), 1 TAB PO BID Trazodone Hcl (Desyrel), 100 MG PO HS Scheduled PRN Acetaminophen (Tylenol), 1,000 MG PO Q6H PRN for Pain Hydrocodone/Acetaminophen 5MG/325MG ([place] 5MG/325MG), 1-2 TABLET PO Q4H PRN for Pain Ibuprofen (Advil), 400 MG PO Q6H PRN for Pain Allergies Coded Allergies: Prednisone (Verified Allergy, Intermediate, RASH "ALL OVER", 09/21/17) BEE STING (Verified Adverse Reaction, Severe, ANAPHYLAXIS, 09/21/17) Vital Signs Date Time Temp Pulse Resp B/P (MAP) Pulse Ox O2 Delivery O2 Flow Rate FiO2 09/21/17 22:53 36.9 95 18 162/123 96 Room Air Departure Information Impression Primary Impression: Encounter for abscess packing removal Dispostion Home / Self-Care Condition GOOD Forms HOME CARE DOCUMENTATION FORM, IMPORTANT VISIT INFORMATION Patient Instructions [facility] Additional Instructions Wash off any remaining debris and return to activity as tolerated. Continue antibiotics as previously prescribed
[2017-09-21 23:26] VITALS: BP 160/92; PULSE 95; O2SAT 96
== END 2017-09-21 23:28 | disposition home or self-care (01) ==
LOC: C.EDB 22:48 → C.EDC 23:28
DX: Z48.00 Encounter for change or removal of nonsurgical wound dressing (principal); Z88.8 Allergy status to other drugs, medicaments and biological substances; Z91.030 Bee allergy status

== ENCOUNTER 2017-10-10 23:41 | Emergency (ER) | payer OTHER ==
[~2017-10-10] VITALS: Ht 193 cm; Wt 90.3 kg
[~2017-10-10 23:41] MED LIST changes: -SULF800T23 PO
[2017-10-10 23:49] VITALS: TEMP 36.7; Ht 193 cm; Wt 90.3 kg
[2017-10-11] MEDS ORDERED: SULFAMETHOXAZOLE/TRIMETHOPRIM DS 800/160MG TAB PO STA (00:06)
[2017-10-11] MEDS ORDERED: SULF800T23 PO (00:13)
[2017-10-11] MEDS ORDERED: CEPH500C PO (00:13)
[2017-10-11] MEDS ORDERED: CEPHALEXIN 500MG HOME PACK 1 EA BTL PO ONE (00:15)
[2017-10-11] MEDS ORDERED: NORCO 5/325MG HOME PACK PO ONE (00:15)
--- NOTE | 2017-10-11 00:17 | EMERGENCY ROOM VISIT NOTE ---
History First contact with patient: 23:55 Chief Complaint: EAR PAIN Stated Complaint: CYST IN EAR HURTS AT LEVEL 10 History of Present Illness The patient is a 37 year old male who presents to the Emergency Room with complaints of an abscess to his right earlobe. The patient reports that he has had a recurrent cyst in his right ear. He states that he was here a few weeks ago and had the abscess drained. He has not followed up with ENT. He states that he needs a referral from his primary care provider, but they refuse to see him for this issue. He states that the area began spontaneously draining today. He rates his discomfort a 10/10 and states it is sharp. He denies fevers. Review of Systems A complete 10 point review of systems was reviewed with the patient with pertinent positives and negatives as per history of present illness. All else were negative. Past Medical/Surgical History Medical Problems: (1) Abdominal pain (2) Abscess of leg, right (3) Abscess, earlobe (4) Alcohol abuse (5) Alcohol intoxication (6) Ankle pain (7) Asthma (8) Asthma exacerbation (9) Bilateral otitis externa (10) Blood Clots (11) Bronchitis (12) Cellulitis of right ear (13) Cellulitis of right earlobe (14) Cervical strain (15) Chronic hip pain (16) Contusion of left hand including fingers (17) Contusion of multiple sites (18) Dehydration (19) Depression (20) Depression (21) Encounter for removal of abscess packing (22) Fall due to slipping on ice or snow (23) Headache (24) Headache (25) Headache (26) Hematemesis (27) Hx-Venous Thrombosis&Embolism (28) Infected sebaceous cyst (29) Moderate recurrent major depression (30) Nausea and vomiting (31) Numbness on right side (32) Pharyngitis (33) Pharyngitis (34) Pneumonia (35) Pneumonitis (36) Right calf pain (37) Right knee pain (38) Right upper quadrant abdominal pain (39) Single major depressive episode (40) Stomach Problems (41) Strain of thoracic spine (42) Suicidal ideation (43) URI (upper respiratory infection) (44) URI, acute (45) Vomiting (46) Vomiting and diarrhea Surgical Problems: (1) Appendectomy (2) Knee Surgery Family History Diabetes mellitus Hypertension Social History Smoking Status: Current Every Day Smoker Alcohol Use: heavy Drug Use: none Marital Status: single Housing Status: lives with family Occupation Status: unemployed Current/Historical Medications Scheduled Cephalexin Monohydrate (Keflex), 500 MG PO QID Sulfa/Trimethoprim (Bactrim Ds 800MG/160MG), 1 TAB PO BID Trazodone Hcl (Desyrel), 100 MG PO HS Scheduled PRN Acetaminophen (Tylenol), 1,000 MG PO Q6H PRN for Pain Ibuprofen (Advil), 400 MG PO Q6H PRN for Pain Physical Exam Vital Signs Date Time Temp Pulse Resp B/P (MAP) Pulse Ox O2 Delivery O2 Flow Rate FiO2 10/11/17 00:24 68 18 153/83 96 10/10/17 23:49 36.7 82 18 147/85 95 Room Air Physical Exam VITALS: Vitals are noted on the nurse's note and reviewed by myself. Vital signs stable. GENERAL: This is a 37-year-old male, in no acute distress, nondiaphoretic, well- developed well-nourished. SKIN: The right earlobe is erythematous and indurated at the junction with the skin. There is a small healing incision posteriorly. There is no obvious fluctuance or drainage at this time. No surrounding cellulitic changes. EARS: External auditory canals clear, tympanic membranes pearly vasquez without erythema or effusion bilaterally. EYES: Pupils equal round and reactive to light and accommodation. NECK: Supple without nuchal rigidity. No lymphadenopathy. NEURO: Patient was alert and oriented to person place and time. Medical Decision & Procedures Medications Administered Medications (Trade) Dose Ordered Sig/Elías Route Start Time Stop Time Status Last Admin Dose Admin Trimethoprim/ Sulfamethoxazole ([place] Ds 800/ 160MG Tab) 1 tab NOW STAT PO 10/11/17 00:06 10/11/17 00:10 DC 10/11/17 00:21 1 TAB Cephalexin Monohydrate (Keflex 500MG Home Pack) 1 homepack NOW ONCE PO 18 00:15 18 00:16 DC 10/11/17 00:21 1 HOMEPACK Acetaminophen/ Hydrocodone Bitart ([place] 5/325mg Home Pack) 1 homepack UD ONCE PO 10/11/17 00:15 18 00:16 DC 10/11/17 00:21 1 HOMEPACK Medical Decision Differential diagnosis includes abscess, cellulitis, infected sebaceous cyst, among others. The patient is a 37-year-old male who presents today complaining of swelling and pain of his right earlobe. Patient has had a recurrent abscess in this area , most recently was seen here a few weeks ago for the same. The area is not fluctuant at this time and has been spontaneously draining on its own. Patient will be placed on antibiotics. Had a discussion with the patient regarding the need for follow-up with ENT for definitive treatment. Patient did request something for pain and was given a [place] home pack. Review of the PDMP does show that the patient has received narcotic prescriptions from a single provider in the past. He reports that he is no longer prescribed anything but I informed him he would not receive any further prescriptions from the ER. He was advised to return here with worsening swelling, fevers or other new/ concerning symptoms. Based on the patient's presentation and work up, I feel the patient is stable for outpatient treatment. The patient was educated to return to the emergency department for any worsening of their current condition or new/concerning symptoms. He will follow up with his PCP/ENT. [place] Drug Monitoring Program Search Results: patient reviewed within database (has received narcotic rx from single provider, most recently 7 days ago) Medication Reconcilliation Current Medication List: was personally reviewed by me Blood Pressure Screening Patient's blood pressure: Elevated blood pressure Blood pressure disposition: Elevated BP felt to be situational Impression Primary Impression: Cellulitis of right ear Departure Information Dispostion Home / Self-Care Condition GOOD Prescriptions Sulfa/Trimethoprim (Bactrim Ds 800MG/160MG) Tab 1 TAB PO BID for 10 Days, #20 TAB Prov: Corrina Brewer PA-C 10/11/17 Cephalexin Monohydrate (Keflex) 500 Mg Cap 500 MG PO QID for 10 Days, #40 CAP Prov: Corrina Brewer PA-C 10/11/17 Referrals Hi Mendez M.D. (MEDICAL) (PCP) Albino Little MD Patient Instructions My [facility] Additional Instructions You were prescribed Keflex to be taken 4 times daily as prescribed. This is an antibiotic. All antibiotics have the potential to cause diarrhea. Stop this medication and contact a medical provider if you were to develop any significant adverse side effects including: wheezing, shortness of breath, passing out, vomiting, or a diffuse rash. Always take antibiotics as directed and COMPLETE the ENTIRE course regardless of the improvement of your symptoms. You were prescribed Bactrim to be taken twice daily as prescribed. This is an antibiotic. All antibiotics have the potential to cause diarrhea. Stop this medication and contact a medical provider if you were to develop any significant adverse side effects including: wheezing, shortness of breath, passing out, vomiting, or a diffuse rash. Always take antibiotics as directed and COMPLETE the ENTIRE course regardless of the improvement of your symptoms. You should apply warm compresses to the ear 3-4 times daily to help facilitate further drainage. For pain control, you can use the following zyxn-owd-eilbusb medicines (if >12 yo): - Regular strength (325mg/tab) Tylenol (acetaminophen) 2 tabs every 4-6 hours as needed. Do not exceed 12 tablets in a 24 hour period. Avoid taking more than 4 grams (4000 mg) of Tylenol per day. This includes any other sources of acetaminophen you may take on a regular basis. - Regular strength (200 mg/tab) Advil (ibuprofen) 1-2 tabs every 4-6 hours as needed. Do not exceed a dose of 3200 mg per day. You need to see an ENT for definitive treatment of the abscess behind your ear. Return here for worsening swelling/redness, fever or other new/concerning symptoms.
[2017-10-11 00:24] VITALS: BP 153/83; PULSE 68; O2SAT 96
== END 2017-10-11 00:26 | disposition home or self-care (01) ==
LOC: C.EDB 23:42 → C.EDA 10-11 00:26
DX: H60.11 Cellulitis of right external ear (principal); J45.909 Unspecified asthma, uncomplicated; F32.9 Major depressive disorder, single episode, unspecified; Z87.01 Personal history of pneumonia (recurrent); Z83.3 Family history of diabetes mellitus; Z82.49 Family history of ischemic heart disease and other diseases of the circulatory system; F17.210 Nicotine dependence, cigarettes, uncomplicated; Z79.899 Other long term (current) drug therapy

== ENCOUNTER 2018-02-14 20:49 | Emergency (ER) | payer OTHER ==
[~2018-02-14] VITALS: Ht 193 cm; Wt 87.5 kg
[~2018-02-14 20:49] MED LIST changes: -HYDR-5688 PO; -TRAZ-122 PO; +TRAZ-162 PO
[2018-02-14 20:57] VITALS: Ht 193 cm; Wt 87.5 kg
[2018-02-14] MEDS ORDERED: KETOROLAC TROMETHAMINE 60 MG/2 ML VIAL IM STA (21:41)
--- NOTE | 2018-02-14 22:35 | DIAGNOSTIC IMAGING REPORT ---
ULTRASOUND RIGHT LOWER EXTREMITY VENOUS CLINICAL HISTORY: Right knee swelling. COMPARISON STUDY: Right lower extremity venous ultrasound dated 09/07/2014. TECHNIQUE: Real-time, grayscale, and color Doppler sonography of the deep veins of the right lower extremity was performed from the inguinal crease to the calf. Compression and augmentation were utilized. FINDINGS: Occlusive deep venous thrombosis is identified in the calf within the posterior tibial vein. The remaining deep veins of the calf appear clear. Nonocclusive chronic appearing thrombus is identified within the distal superficial femoral vein. The remainder of the superficial femoral vein, as well as the common femoral and popliteal veins are patent and normally compressible. The greater saphenous vein and the profunda femoris vein at the junction with the common femoral vein are clear. Occlusive superficial thrombus is noted within the lesser saphenous vein at the level of the popliteal fossa. IMPRESSION: 1. There is acute appearing occlusive deep venous thrombosis identified in the calf within the posterior tibial vein. 2. Chronic appearing nonocclusive deep venous thrombosis is seen within the distal superficial femoral vein. This may have also been present on the 2014 examination. 3. Occlusive superficial venous thrombus is seen in the lesser saphenous vein. Electronically signed by: Ponce Shin M.D. 02/14/2018 10:33 PM Dictated Date/Time: 02/14/2018 10:29 PM
--- NOTE | 2018-02-14 22:49 | DIAGNOSTIC IMAGING REPORT ---
RIGHT KNEE 3 VIEWS CLINICAL HISTORY: Right knee pain and swelling. FINDINGS: AP, crosstable lateral, and sunrise views of the right knee are compared to study dated 03/16/2017. The skeletal structures are osteopenic. No fracture is identified. A right knee arthroplasty is in near anatomic alignment. There has been undersurface remodeling of the patella. No periprosthetic lucency is identified. There is a large joint effusion. Soft tissue edema is present around the knee. IMPRESSION: 1. Soft tissue swelling and large joint effusion. No acute bony abnormality is identified. 2. A right knee arthroplasty is in near anatomic alignment. Electronically signed by: Ponce Shin M.D. 02/14/2018 10:48 PM Dictated Date/Time: 02/14/2018 10:46 PM
[2018-02-14] MEDS ORDERED: RIVA1TAB7 PO (23:09)
[2018-02-14] MEDS ORDERED: RIVAROXABAN 20 MG TAB PO ONE (23:15)
[2018-02-14] MEDS ORDERED: RIVAROXABAN TAB 15 MG TAB PO ONE (23:15)
[2018-02-14 23:23] VITALS: BP 157/94; PULSE 93; TEMP 36.9; O2SAT 98
--- NOTE | 2018-02-15 05:02 | EMERGENCY ROOM VISIT NOTE ---
History First contact with patient: 21:35 Chief Complaint: KNEEPAIN Stated Complaint: RIGHT KNEE PAIN History of Present Illness The patient is a 37 year old male who presents to the Emergency Room with complaints of right knee pain worsening over the past 1 day. The patient has a history of chronic knee issues and evidently had a knee replacement performed to the knee about 2 months ago. He is undergoing physical therapy, and usually is well controlled with his normal oxycodone that he takes daily. The patient believes that he may have had an increase in normal activity yesterday, and had difficulty sleeping last night because of this. The patient does not report new injury or trauma. He does report a history of DVT in the past. He is not having chest pain, chest tightness, or shortness of breath. He is no longer on Coumadin. The patient has increased pain with walking and flexion of the knee. He has not had fevers or chills. He rates his current discomfort a 5/10. Review of Systems More than 10 systems were reviewed and otherwise negative with the exception of history of present illness. Past Medical/Surgical History Medical Problems: (1) Abdominal pain (2) Abscess of leg, right (3) Abscess, earlobe (4) Alcohol abuse (5) Alcohol intoxication (6) Ankle pain (7) Asthma (8) Asthma exacerbation (9) Bilateral otitis externa (10) Blood Clots (11) Bronchitis (12) Cellulitis of right ear (13) Cellulitis of right earlobe (14) Cervical strain (15) Chronic hip pain (16) Contusion of left hand including fingers (17) Contusion of multiple sites (18) Dehydration (19) Depression (20) Depression (21) Encounter for removal of abscess packing (22) Fall due to slipping on ice or snow (23) Headache (24) Headache (25) Headache (26) Hematemesis (27) Hx-Venous Thrombosis&Embolism (28) Infected sebaceous cyst (29) Moderate recurrent major depression (30) Nausea and vomiting (31) Numbness on right side (32) Pharyngitis (33) Pharyngitis (34) Pneumonia (35) Pneumonitis (36) Right calf pain (37) Right knee pain (38) Right upper quadrant abdominal pain (39) Single major depressive episode (40) Stomach Problems (41) Strain of thoracic spine (42) Suicidal ideation (43) URI (upper respiratory infection) (44) URI, acute (45) Vomiting (46) Vomiting and diarrhea Surgical Problems: (1) Appendectomy (2) Knee Surgery Family History Diabetes mellitus Hypertension Social History Smoking Status: Current Every Day Smoker Alcohol Use: heavy Drug Use: none Marital Status: single Housing Status: lives with family Occupation Status: unemployed Current/Historical Medications Scheduled Rivaroxaban (Xarelto Starter Pack 15 & 20 mg), 1 DOSE PO DIRECTED Trazodone Hcl (Desyrel), 100 MG PO HS Scheduled PRN Acetaminophen (Tylenol), 1,000 MG PO Q6H PRN for Pain Ibuprofen (Advil), 400 MG PO Q6H PRN for Pain Physical Exam Vital Signs Date Time Temp Pulse Resp B/P (MAP) Pulse Ox O2 Delivery O2 Flow Rate FiO2 02/14/18 23:23 36.9 93 18 157/94 98 02/14/18 20:57 36.9 93 18 169/94 98 Room Air Physical Exam VITALS: Vitals are noted on the nurse's note and reviewed by myself. Vital signs stable. GENERAL: Well-developed, well-nourished, white male, who is in no acute distress and resting comfortably. Patient is cooperative with the examination. HEAD: Normocephalic atraumatic. HEART: Regular rate and rhythm without murmurs gallops or rubs. LUNGS: Clear to auscultation bilaterally without wheezes, rales or rhonchi. No retractions or accessory muscle use. ABDOMEN: Positive normal bowel sounds x 4. Soft, nontender, without masses or organomegaly. No guarding or rebound tenderness. MUSCULOSKELETAL: There is edema appreciated around the right knee. There is an anterior vertical surgical incision scar that appears well healing. There is no significant warmth to the knee itself. Tenderness is appreciated into the proximal posterior calf as well as the mid calf. Neurovascular status is intact to the distal extremity. NEURO: Patient was alert and oriented to person place and time. CN II through XII grossly intact. Medical Decision & Procedures ER Provider Diagnostic Interpretation: ULTRASOUND RIGHT LOWER EXTREMITY VENOUS CLINICAL HISTORY: Right knee swelling. COMPARISON STUDY: Right lower extremity venous ultrasound dated 09/07/2014. TECHNIQUE: Real-time, grayscale, and color Doppler sonography of the deep veins of the right lower extremity was performed from the inguinal crease to the calf. Compression and augmentation were utilized. FINDINGS: Occlusive deep venous thrombosis is identified in the calf within the posterior tibial vein. The remaining deep veins of the calf appear clear. Nonocclusive chronic appearing thrombus is identified within the distal superficial femoral vein. The remainder of the superficial femoral vein, as well as the common femoral and popliteal veins are patent and normally compressible. The greater saphenous vein and the profunda femoris vein at the junction with the common femoral vein are clear. Occlusive superficial thrombus is noted within the lesser saphenous vein at the level of the popliteal fossa. IMPRESSION: 1. There is acute appearing occlusive deep venous thrombosis identified in the calf within the posterior tibial vein. 2. Chronic appearing nonocclusive deep venous thrombosis is seen within the distal superficial femoral vein. This may have also been present on the 2014 examination. 3. Occlusive superficial venous thrombus is seen in the lesser saphenous vein. RIGHT KNEE 3 VIEWS CLINICAL HISTORY: Right knee pain and swelling. FINDINGS: AP, crosstable lateral, and sunrise views of the right knee are compared to study dated 03/16/2017. The skeletal structures are osteopenic. No fracture is identified. A right knee arthroplasty is in near anatomic alignment. There has been undersurface remodeling of the patella. No periprosthetic lucency is identified. There is a large joint effusion. Soft tissue edema is present around the knee. IMPRESSION: 1. Soft tissue swelling and large joint effusion. No acute bony abnormality is identified. 2. A right knee arthroplasty is in near anatomic alignment. Medications Administered Medications (Trade) Dose Ordered Sig/Elías Route Start Time Stop Time Status Last Admin Dose Admin Ketorolac Tromethamine (Toradol Inj) 60 mg NOW STAT IM 02/14/18 21:41 02/14/18 21:43 DC 02/14/18 21:52 60 MG Rivaroxaban (Xarelto Tab) 15 mg NOW ONCE PO 02/14/18 23:15 02/14/18 23:16 DC 02/14/18 23:23 15 MG ED Course Physical exam and history were performed. Nursing notes, EMR, and Medication List were personally reviewed. Patient appears to have right knee pain worsening over the past 1 day. He does have a recent surgical history as well as a history of DVT. The patient does have oxycodone at home takes on a daily basis. He was given IM Toradol here in the department. X-ray was performed and reviewed by myself and radiology as showing no significant fracture dislocation. He does have an effusion of the knee. Ultrasound was also gathered, and does reveal an acute DVT. I had a lengthy discussion with the patient regarding this finding, as it appears to be different from his chronic DVT. He is currently not anticoagulated does have a recent surgical history. Clinically I do suspect this is acute, and after discussing risks and benefits of treatment we elected to start the patient on Xarelto. His first dose was provided here, and he was also given a continuation prescription. I discussed the patient's status with case management who are going to assist in establishing a PCP appointment in the next 24-48 hours. The patient was very pleased with this and voiced understanding. I did offer him ambulatory devices, however he has crutches and a walker at home that he may continue to use. He is to continue his pain medication and follow-up in 1-2 days as assisted by case management The chart was completed utilizing [email or web address] Voice Recognition Software. Grammatical errors, random word insertions, pronoun errors, and incomplete sentences are an occasional consequence of this system due to software limitations, ambient noise, and hardware issues. Any formal questions or concerns about the content, text, or information contained within the body of this dictation should be directly addressed to the provider for clarification. . Medical Decision Differential diagnosis: Etiologies such as DVT, musculoskeletal, infection, joint effusion, trauma, lymphedema, idiopathic, CHF, as well as others were entertained.. Impression Primary Impression: DVT (deep venous thrombosis) Departure Information Dispostion Home / Self-Care Condition GOOD Prescriptions Rivaroxaban (Xarelto Starter Pack 15 & 20 mg) 1 Tab Tab 1 DOSE PO DIRECTED for 30 Days, #1 PKT Prov: Alvino Doe PA-C 02/14/18 Forms HOME CARE DOCUMENTATION FORM, IMPORTANT VISIT INFORMATION Patient Instructions Anticoagulants, [facility], ED DVT Additional Instructions You were seen and evaluated today on an emergency basis only. This is not a substitute for, or an effort to provide, complete comprehensive medical care. It is not possible to recognize and treat all injuries or illnesses in a single emergency department visit. For this reason it is recommended that you followup with your primary care physician on for ongoing care and evaluation. Take Xarelto as prescribed You are welcome to return to the emergency department anytime with new, worsening, or concerning symptoms.
== END 2018-02-14 23:24 | disposition home or self-care (01) ==
LOC: C.EDB 20:50 → C.EDD 23:24
DX: I82.401 Acute embolism and thrombosis of unspecified deep veins of right lower extremity (principal); G89.29 Other chronic pain; J45.909 Unspecified asthma, uncomplicated; F17.200 Nicotine dependence, unspecified, uncomplicated; Z96.659 Presence of unspecified artificial knee joint; Z79.899 Other long term (current) drug therapy